=== PATIENT | male | born 1945 | race Hispanic/Latino ===

== ENCOUNTER 2018-04-29 21:48 | Inpatient (IN) | payer MEDICARE ==
--- NOTE | 2018-04-29 23:51 | ULT ---
ULTRASOUND SCROTUM TESTICLES DOPPLER DUPLEX: 04/29/18 HISTORY: 72-year-old male with scrotal pain and swelling. TECHNIQUE: Montesinos-scale evaluation of intrascrotal contents. Color flow Doppler and spectral waveform analysis of the testicles. FINDINGS: The entire right epididymis is severely enlarged, with mixed, heterogeneous echogenicity, and very hy peremic (increased blood flow). There is a small right hydrocele. The right testicle is smaller than the left, measuring 2.3 x 1.6 x 1.9 cm. There is at least one tiny calcification in the right testicu lar parenchyma. Left testicle is 3.6 x 1.6 x 2.4 cm. It also contains at least one tiny calcification. The left epididymal head is within normal limits in size. Symmetrical blood flow is demonstrated in both testicles by doppler. IMPRESSION: Evidence for severe right epididymitis. MULU [place] POS: J[facility]
[2018-04-30 00:47] LABS: Bilirubin Small (Negative); Blood, Urine Moderate (Negative); Clarity CLOUDY (Clear); Glucose, Urine (Dipstick) >=1000 mg/dL (Negative); Leukocyte Large (Negative); Nitrite Positive (Negative); Protein, Urine (Dipstick) Trace mg/dL (Neg-Trace); Specific Gravity, Urine 1.023 (1.002-1.036)
[2018-04-30 00:49] LABS: Bacteria/HPF None Seen HPF (None Seen); Hyaline Casts/LPF 0-3 HYALINE CAST LPF (0-3 Hyaline); Pathc Cast-AUWi Flag 0.43 (0-2.49); RBC/HPF 21-50 HPF (0-3); Squamous Epithelial None Seen HPF (0-3)
[2018-04-30 00:54] LABS: Yeast-All Forms None Seen HPF (None Seen)
[2018-04-30] MEDS ORDERED: Tamsulosin HCl 0.4 MG CAP PO SCH (01:30)
[2018-04-30] MEDS ORDERED: diphenhydrAMINE 50 MG/ML VIAL ONE (02:08)
[2018-04-30] MEDS ORDERED: Sodium Chloride 0.9% 1,000 ML IV SCH (03:45)
[2018-04-30] MEDS ORDERED: Acetaminophen 325 MG TAB PO PRN (08:35)
[2018-04-30] MEDS ORDERED: Mag-Al 1200 mg/1200 mg/30 ML UDCUP PO PRN (08:35)
[2018-04-30] MEDS ORDERED: Milk Of Magnesia 30 ML UDCUP PO PRN (08:35)
[2018-04-30] MEDS ORDERED: Ondansetron ODT 4 MG TAB PO PRN (08:35)
[2018-04-30] MEDS ORDERED: HYDROcodone/Acetaminophen 5/325 mg Tablet PO PRN (08:35)
[2018-04-30] MEDS ORDERED: hydrALAZINE 20 MG/ML VIAL SLOW IVP PRN (08:35)
[2018-04-30] MEDS ORDERED: Dextrose 50% Abboject 50 ML SYRINGE SLOW IVP PRN (08:35)
[2018-04-30] MEDS ORDERED: Dextrose 5% in Water 1,000 ML IV PRN (08:35)
[2018-04-30] MEDS ORDERED: HumaLOG 300 UNITS/3 ML VIAL SC PRN (08:35)
[2018-04-30] MEDS ORDERED: cefTRIAXone\\ROCEPHIN 1 GM in Sodium Chloride 0.9% 100 ML IVPB SCH (09:00)
[2018-04-30] MEDS ORDERED: Prevnar 13-Val Conj/PF 0.5 ML SYRINGE IM ONE (09:00)
--- NOTE | 2018-04-30 09:23 | HP ---
PRIMARY CARE PHYSICIAN: Dr. العلي. CHIEF COMPLAINT: Bleeding when I urinate. HISTORY OF PRESENT ILLNESS: Mr. Torres is a pleasant 72-year-old gentleman who has a history of hyp ertension, diabetes mellitus as well as prostate cancer. He says he was hospitalized in [facility] 2 weeks ago for what sounds like a urinary tract infection. At that time, he says he was having so me blood in his urine and was treated with antibiotics and then released. He says that he was doing fine until the day of admission when he got up to go the bathroom and says that he did not really not ice anything, but then when he looked in the toilet after he urinated, it was basically just blood. This concerned him and he called his daughter who then told him to come to the hospital in [place] where she lives. He says by the time the ambulance came, the urine was starting to clear up and was more of an orangish color. He denies having any dysuria or any flank pain. He says he did have some pressure down in the lower abdomen area, but no other symptoms. He denies any fevers or chills, tali sea or vomiting. He also had noticed feeling a knot in his scrotal area, but he says it was not pain ful, but figured this needed to be checked out as well. In the emergency room in [place], they did an ultrasound of the testicle and noticed some evidence for epididymitis and he was transferred to [facility] facility for further evaluation. The patient also has coronary artery disease and diabetes, and h e states these are generally well controlled. He denies any chest pain or shortness of breath, no PN D, no orthopnea and he does not elicit very many prostate symptoms either such as difficulty with his stream, etc. REVIEW OF SYSTEMS: All systems were reviewed and are negative except for that mentioned in the histo ry of present illness. PAST MEDICAL HISTORY: Significant for coronary artery disease, congestive heart failure, diabetes me llitus type 2, hyperlipidemia, hypertension, prostate cancer, migraine headaches, and peripheral vasc ular disease. PAST SURGICAL HISTORY: He has had a cervical fusion, laminectomy, coronary stents, coronary artery b ypass grafting and lumbar laminectomy. ALLERGIES: He is unsure of any allergies. SOCIAL HISTORY: He is a former smoker and he used to drink, but he says he quit both 8 years ago whe n his doctor told him to. He is and then after that he was remarried and . He has 8 children. His code status is full code. His daughter, Orquidea Torres is his surrogate decision layne de. FAMILY HISTORY: Significant for heart disease in his father. Mother had cerebrovascular disease as well as a brother. CURRENT MEDICATIONS: Unknown. These need to be obtained and reconciled. PHYSICAL EXAMINATION: GENERAL: He is alert and oriented. He appears to be in no acute distress. He is well-developed and well-nourished. VITAL SIGNS: Blood pressure was 154/61, heart rate 81, respiratory rate of 18, temperature is 98.3. HEENT: His pupils are equal, round, and reactive. Extraocular muscles are intact. His sclerae are anicteric. Throat: There is no erythema, no exudates. He is basically edentulous. NECK: There is no adenopathy, no bruits. LUNGS: Clear to auscultation. There is no wheezing, no rales. CARDIOVASCULAR: He had a normal S1, S2. I did not appreciate an S3 or S4. No murmurs, clicks, no r ubs. ABDOMEN: Obese, it is soft. He did have some mild lower quadrant tenderness. There is no rebound, no guarding, no organomegaly. EXTREMITIES: There is no clubbing, cyanosis. There is no muscle or calf tenderness. There are no j oint effusions or crepitus in the lower extremities. NEUROLOGIC: Cranial nerves II through XII are intact and muscle strength was intact in both the uppe r and lower extremities. SKIN AND INTEGUMENT: There were no skin changes. No rash. He had good capillary refill and pulses were palpable. LABORATORY RESULTS: Urinalysis showed positive nitrites, large leukocyte esterase and too numerous t o count WBCs. His sodium was 134, potassium 4.4, chloride is 100, CO2 is 24, BUN was 21.6, creatinin e 1.2, glucose is 292. Bilirubin is 1.2, alkaline phosphatase is elevated at 235. White blood cell count 11.11, hemoglobin 12.5, hematocrit is 36.9, platelet count is 348. ASSESSMENT AND PLAN: This is a pleasant 72-year-old gentleman who presented to the [place] emergen cy room, he states for hematuria and a knot feeling in his testicle. He was found to have epididymit is. He will be admitted for IV antibiotics. Urologist has already been consulted and has seen the p atient and we will continue with recommendations. 1. Diabetes mellitus. We will need to obtain the names and doses of his medications and reconcile. Also, he will be placed on a sliding scale insulin. 2. Hypertension. This appears to be controlled once again. Restart him on his usual medications as well as p.r.n. medications. 3. Coronary artery disease also appears to be stable. We will continue his home medications and he will also be placed on deep venous thrombosis and gastrointestinal prophylaxis.
[2018-04-30] MEDS: MEROPENEM 1 GM/50 ML 1 GM in Premix Bag 1 BAG IVPB SCH ×2 (10:25→13:08)
[2018-04-30] MEDS: cloNIDine 0.1 MG TAB PO PRN (10:28)
[2018-04-30] MEDS: Docusate 100 MG CAP PO SCH ×2 (10:28→20:14)
[2018-04-30] MEDS: Enoxaparin Sodium 40 MG/0.4 ML SYRINGE SC SCH (10:29)
--- NOTE | 2018-04-30 11:21 | CON ---
DATE OF CONSULTATION: 04/30/2018 HISTORY OF PRESENT ILLNESS: The patient is a 72-year-old male, who was admitted overnight via the ER for right epididymitis without adequate pain control. I was called approximately 12:30 at night with the clinical scenario with an ultrasound that showed only concern for epididymitis and no concerns for abscess nor clinical concerns for sepsis and was just asked to see him in the morning. The patient is actually a patient of Dr. Pozo, although he cannot remember the name and I was only able to find that out through looking at [facility] records, and prior to that, he was a patient of another urologist, who actually treated his prostate cancer about 7 years ago with radiation therapy. He is not exactly sure, but he does think he had a PSA in the last 2 years at [facility] that was okay, although then he relates getting a shot, which I presume is Lupron, and I do not have the full details of his prostate cancer history. More recently, he was treated at the [facility] for urinary tract infection and took antibiotics and was otherwise doing a little bit better until he had significant right testicular pain and swelling and presented to the [place] ER, because he did not want to go back to [place]. He was ultimately, transferred to [place], as best I can tell, because of concerns for inadequate pain control with progression of the recent infection despite recent antibiotics. He has not had any fever, chills, nausea, or vomiting. This was his first urinary tract infection. He did note some blood in the urine at the time of the infection, but that was last week and not recently. He denies any concerns about emptying his bladder, and normally has frequency q.2-3 hours and nocturia x4. He does not have any hesitancy. The stream is okay and he does feel as though he empties. I ensured he was emptying by asking the ER to check a PVR--that was minimal per report. For this reason, I do not think a arredondo will be helpful--in fact given his Plavix and ASA, would probably cause more harm than help. PAST MEDICAL HISTORY: Significant for hyponatremia, coronary artery disease, CHF, diabetes since about 2012, hypertension, high cholesterol, migraines, peripheral vascular disease, and the above-mentioned prostate cancer. PAST SURGICAL HISTORY: Includes a CABG in 2013; carotid endarterectomy on at least one side if not both sides, he has had a procedure on both, and 1 is now 100% blocked per the patient. He also had radiation therapy for his prostate cancer. MEDICATIONS: Include Plavix, baby aspirin, and then others he cannot remember. ALLERGIES: None, although last night they gave him something that he reports getting a rash on his arm from. He is not aware what that is. REVIEW OF SYSTEMS: Reveals he is not aware whether he has had a colonoscopy. He has no chest pain, no shortness of breath, no cough. No numbness or tingling. Two to three weeks ago, he had constipation, but otherwise his bowels have been improved and he had a normal bowel movement yesterday. SOCIAL HISTORY: He has a 18-iflq-inup history, but quitting around 2012. He used to drink alcohol, but denies any concern for significant abuse and has not had any since 2012. No other drugs. He lives in an assisted living facility by himself. FAMILY HISTORY: His mom in her late 70s of stroke. Dad at 77 of heart disease, neither of them had cancer. PHYSICAL EXAMINATION: GENERAL: He appears comfortable in the bed and in no distress. HEENT: He has no scleral icterus. No diaphoresis. It is difficult to assess JVD given his body habitus. HEART: Regular rate and rhythm. No murmurs, gallops, or rubs. LUNGS: Clear to auscultation bilaterally. ABDOMEN: Soft, nondistended, nontender with normoactive bowel sounds. Small umbilical hernia noted. EXTREMITIES: He had no lower extremity edema. GENITAL EXAM: He had an uncircumcised phallus that was easily retracted and examined without any meatal stenosis, and then reduced again. His left testicle was normal. His right testicle was smaller than the left, but with severe induration and more so at the epididymis and tender, but not significantly painful to exam. There was no scrotal changes or edema. There was no crepitus or erythema. LABORATORY DATA: I do not have any labs, as they are in the [place] and I do not have access to this, but labs from 04/19/2018 through the [facility] system show an anemia of 11.5 and 34.0, BUN and creatinine of 12 and 0.80. A urinalysis from this hospital entry shows too numerous to count wbc's, 21-50 rbc 's, no bacteria, no squamous cells with greater than 1000, glucose and trace protein. A urinalysis from 04/18/2018 showed greater than 50 wbc's, 20-50 rbc's , few bacteria, rare squamous cells with a culture that grew E. coli that was sensitive only to nitrofurantoin and Bactrim on an oral standpoint with multiple other drug resistance since even an IV including ceftriaxone. His blood cultures were negative from that time. A PSA from 04/20/2017 was less than 0.1. Scrotal ultrasound from 04/29/2018 reviewed personally revealed severe right epididymitis with a smaller right testicle than the left and unremarkable calcifications in both. A CT scan from 04/18/2018 was reviewed personally and this was in the [facility] system that revealed renal vascular calyx only. No collecting system calcifications. Normal kidneys without any hydronephrosis. Normal bladder with mild kenny-vesicle stranding noted and normal prostate. ASSESSMENT AND PLAN: In assessment, we have a 72-year-old male with a recent urinary tract infection that progressed to right epididymitis secondary to a multidrug-resistant organism, so I have switched him from ceftriaxone to meropenem. I would await the culture from [place] before sending him out on antibiotics to ensure that this is not a different organism from the more recent infection. If it is the same organism--and he can tolerate Bactrim-- then he can go out on this for at least 2 weeks. If it is different, then he may or may not need a PICC line and IV antibiotics depending on those results. We reviewed scrotal elevation support, avoiding any straining including for constipation, and ambulating to prevent blood clots, but otherwise no significant exercise until things greatly improve from his pain standpoint. At this time, his exam is not concerning for anything other than local epididymitis. I will inform Dr. Pozo of his admission, and they can continue to follow up with him as an outpatient. I'll inform the urology coverage for this weekend as well. TITO
[2018-04-30] MEDS: HumaLOG 300 UNITS/3 ML VIAL SC PRN (13:18)
[2018-04-30] MEDS ORDERED: Meropenem 1 GM in Sodium Chloride 0.9% 100 ML IVPB SCH (14:00)
[2018-05-01] MEDS ORDERED: diphenhydrAMINE 25 MG CAP PO SCH (04:30)
[2018-05-01 05:08] LABS: #Eosinphils 0.2 thou/uL (0.0-0.7); #Lymphocytes 2.6 thou/uL (1.20-3.40); #Monocytes 0.7 thou/uL (0.11-0.59); #Neutrophils 9.4 thou/uL (1.40-6.50); %Basophils 0.4 % (0.0-1.0); %Eosinophils 1.5 % (0.0-10.0); %Monocytes 5.6 % (0.0-10.0); %Neutrophils 72.5 % (42.0-75.0); Hemoglobin 13.1 g/dL (14.0-18.0); Mean Corpuscular HGB CONC 32.6 g/dL (32.0-36.0); Mean Corpuscular Hemoglobin 28.4 pg (27.0-31.0); Mean Corpuscular Volume 86.9 fL (78.0-98.0); Mean Platelet Volume 6.9 fL (7.4-10.4); Platelet Count 396 thou/uL (130-400); RBC Distribution Width 12.6 % (11.5-14.5); Red Blood Cell (RBC) Count 4.64 mill/uL (4.70-6.10); White Blood Cell (WBC) Count 12.9 thou/uL (4.8-10.8)
[2018-05-01 05:29] LABS: Anion Gap 15 mmol/L (10-20); BUN (Urea Nitrogen) 15 mg/dL (8.4-25.7); Calc. Creatinine Clearance 0 mL/min (70-130); Calcium 8.9 mg/dL (7.8-10.44); Carbon Dioxide 22 mmol/L (23-31); Chloride 101 mmol/L (98-107); Estimated GFR-MDRD 73; Glucose 233 mg/dL (83-110); Potassium 4.1 mmol/L (3.5-5.1); Sodium 134 mmol/L (136-145)
[2018-05-01] MEDS: MEROPENEM 1 GM/50 ML 1 GM in Premix Bag 1 BAG IVPB SCH ×3 (05:45→21:04)
[2018-05-01] MEDS: cloNIDine 0.1 MG TAB PO PRN (05:53)
[2018-05-01] MEDS: HumaLOG 300 UNITS/3 ML VIAL SC PRN ×3 (06:14→16:45)
[2018-05-01] MEDS ORDERED: Nitroglycerin 0.4 MG TAB (25 Tab Bottle) SL PRN (08:07)
[2018-05-01] MEDS ORDERED: cloNIDine 0.1 MG TAB PO PRN (08:07)
--- NOTE | 2018-05-01 08:17 | PDOC.PN ---
- Subjective Encounter Start Date: 05/01/18 Encounter Start Time: 08:15 Mr. Torres was seen today in follow-up of right epidydimitis. He does not have any complaints this morning. He denies scrotal pain. He denies chest pain or shortness of breath. His only complaint was some itching last night. - Objective Resuscitation Status: Resuscitation Status FULL:Full Resuscitation MAR Reviewed: Yes Vital Signs & Weight: Vital Signs (12 hours) Temp Pulse Resp BP BP Pulse Ox 05/01/18 05:53 183/77 H 05/01/18 04:00 99.8 F H 92 20 183/77 H 92 L Weight Weight 7.02 oz I&O: 04/30/18 05/01/18 05/02/18 06:59 06:59 06:59 Intake Total 625 Output Total 300 Balance 325 Result Diagrams: 05/01/18 04:55 05/01/18 04:55 Additional Labs: Accuchecks 05/01/18 04/30/18 04/30/18 06:10 20:13 16:29 POC Glucose 213 H 248 H 195 H 04/30/18 11:05 POC Glucose 254 H Phys Exam - Physical Examination HEENT: PERRLA Respiratory: no wheezing, no rales, no rhonchi, clear to auscultation bilateral Cardiovascular: RRR, no significant murmur, no rub no gallop Gastrointestinal: soft, non-tender, no distention, positive bowel sounds Musculoskeletal: no edema, pulses present Dx/Plan (1) Epididymitis, right Code(s): N45.1 - EPIDIDYMITIS Status: Acute (2) Diabetes mellitus type 2 in obese Code(s): E11.69 - TYPE 2 DIABETES MELLITUS WITH OTHER SPECIFIED COMPLICATION; E66.9 - OBESITY, UNSPECIFIED Status: Chronic (3) Hypertension Code(s): I10 - ESSENTIAL (PRIMARY) HYPERTENSION Status: Chronic (4) Coronary artery disease Code(s): I25.10 - ATHSCL HEART DISEASE OF [place] CORONARY ARTERY W/O ANG PCTRS Status: Chronic - Plan * Urology evaluation noted- will continue Meropenem ( given recent history of MDR UTI) and await the current cultures * DM- His home medications have been recorded- will re-start, and continue SSI * HTN- blood pressure is stable- will re-start his home medications * CAD- also stable- re-start home medications .
[2018-05-01] MEDS ORDERED: Non-Formulary Item 1 EACH (Linagliptin [Tradjenta] 5 MG) PO SCH (09:00)
[2018-05-01] MEDS ORDERED: Non-Formulary Item 1 EACH (Levemir Flexpen [Levemir Flexpen] 35 UNIT) SC SCH (09:00)
[2018-05-01] MEDS: Alogliptin 25 MG TAB PO SCH (10:09)
[2018-05-01] MEDS: Atorvastatin Calcium 10 MG TAB PO SCH (10:12)
[2018-05-01] MEDS: Docusate 100 MG CAP PO SCH ×2 (10:12→21:01)
[2018-05-01] MEDS: Enoxaparin Sodium 40 MG/0.4 ML SYRINGE SC SCH (10:13)
[2018-05-01] MEDS: Insulin Glargine 35 UNITS in Pre-Filled Syringe 1 EACH SC SCH (10:17)
[2018-05-01] MEDS ORDERED: Clopidogrel Bisulfate 75 MG TAB PO SCH (21:00)
[2018-05-01] MEDS ORDERED: Insulin Glargine 35 UNITS in Pre-Filled Syringe 1 EACH SC SCH (21:00)
[2018-05-01] MEDS ORDERED: Tamsulosin HCl 0.4 MG CAP PO SCH (21:00)
[2018-05-01] MEDS ORDERED: Amitriptyline HCl 10 MG TAB PO SCH (21:00)
[2018-05-01] MEDS ORDERED: Oxybutynin 5 MG TAB PO SCH (21:00)
[2018-05-01] MEDS ORDERED: traZODone HCl 50 MG TAB PO SCH (21:00)
[2018-05-01] MEDS ORDERED: Amlodipine 10 MG TAB PO SCH (21:00)
[2018-05-02 05:43] LABS: #Eosinphils 0.2 thou/uL (0.0-0.7); #Monocytes 0.7 thou/uL (0.11-0.59); #Neutrophils 6.5 thou/uL (1.40-6.50); %Basophils 0.3 % (0.0-1.0); %Eosinophils 1.9 % (0.0-10.0); %Lymphocytes 21.6 % (21.0-51.0); %Monocytes 7.6 % (0.0-10.0); %Neutrophils 68.5 % (42.0-75.0); Hemoglobin 11.2 g/dL (14.0-18.0); Mean Corpuscular HGB CONC 32.8 g/dL (32.0-36.0); Mean Corpuscular Hemoglobin 28.7 pg (27.0-31.0); Mean Corpuscular Volume 87.6 fL (78.0-98.0); Mean Platelet Volume 7.2 fL (7.4-10.4); Platelet Count 336 thou/uL (130-400); RBC Distribution Width 12.4 % (11.5-14.5); Red Blood Cell (RBC) Count 3.91 mill/uL (4.70-6.10); White Blood Cell (WBC) Count 9.4 thou/uL (4.8-10.8)
[2018-05-02] MEDS: HumaLOG 300 UNITS/3 ML VIAL SC PRN ×2 (05:49→11:48)
[2018-05-02] MEDS: MEROPENEM 1 GM/50 ML 1 GM in Premix Bag 1 BAG IVPB SCH ×2 (05:49→13:46)
[2018-05-02 06:09] LABS: Anion Gap 9 mmol/L (10-20); BUN (Urea Nitrogen) 15 mg/dL (8.4-25.7); Calc. Creatinine Clearance 0 mL/min (70-130); Calcium 8.3 mg/dL (7.8-10.44); Carbon Dioxide 26 mmol/L (23-31); Chloride 101 mmol/L (98-107); Estimated GFR-MDRD 90; Glucose 166 mg/dL (83-110); Potassium 4.3 mmol/L (3.5-5.1); Sodium 132 mmol/L (136-145)
[2018-05-02] MEDS: Insulin Glargine 35 UNITS in Pre-Filled Syringe 1 EACH SC SCH (08:42)
[2018-05-02] MEDS: Enoxaparin Sodium 40 MG/0.4 ML SYRINGE SC SCH (08:46)
[2018-05-02] MEDS: Alogliptin 25 MG TAB PO SCH (08:46)
[2018-05-02] MEDS: Docusate 100 MG CAP PO SCH (08:47)
[2018-05-02] MEDS: Atorvastatin Calcium 10 MG TAB PO SCH (08:47)
--- NOTE | 2018-05-02 10:15 | PDOC.PN ---
- Subjective Encounter Start Date: 05/02/18 Encounter Start Time: 10:14 CC: scrotal pain Sub: pt denies dyspnea - Objective Resuscitation Status: Resuscitation Status FULL:Full Resuscitation Vital Signs & Weight: Vital Signs (12 hours) Temp Pulse Resp BP Pulse Ox 05/02/18 04:53 98.1 F 74 18 114/55 L 93 L 05/02/18 00:27 98 F 77 18 116/63 92 L Weight Weight 7.02 oz I&O: 05/01/18 05/02/18 05/03/18 06:59 06:59 06:59 Intake Total 1820 Output Total 800 Balance 1020 Result Diagrams: 05/02/18 05:13 05/02/18 05:13 Additional Labs: Accuchecks 05/02/18 05/01/18 05/01/18 04:51 20:53 16:33 POC Glucose 164 H 178 H 228 H 05/01/18 10:48 POC Glucose 303 H Phys Exam - Physical Examination Constitutional: NAD HEENT: moist MMs Neck: no nodes Respiratory: no wheezing, no rales, no rhonchi Cardiovascular: RRR, no significant murmur Gastrointestinal: soft positive scrotal pain Musculoskeletal: no edema Neurological: non-focal, moves all 4 limbs Psychiatric: normal affect, A&O x 3 Dx/Plan - Plan * . (1) Epididymitis, right Code(s): N45.1 - EPIDIDYMITIS Status: Acute (2) Diabetes mellitus type 2 in obese Code(s): E11.69 - TYPE 2 DIABETES MELLITUS WITH OTHER SPECIFIED COMPLICATION; E66.9 - OBESITY, UNSPECIFIED Status: Chronic (3) Hypertension Code(s): I10 - ESSENTIAL (PRIMARY) HYPERTENSION Status: Chronic (4) Coronary artery disease Code(s): I25.10 - ATHSCL HEART DISEASE OF [place] CORONARY ARTERY W/O ANG PCTRS Status: Chronic - Plan * Urology evaluation noted- continue Meropenem * DM-continue SSI * HTN- blood pressure is stable. continue norvasc * CAD- stable at present case d/w pt & RN
--- NOTE | 2018-05-02 13:22 | CON ---
DATE OF CONSULTATION: 05/02/2018 REASON FOR CONSULTATION: 1. Right epididymitis. 2. 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 HISTORY OF PRESENT ILLNESS: Mr. Nash Torres is a very pleasant 72-year-old [place] speaking Hispan ic male with a history of prostate cancer. The patient is a routine patient of Dr. Rinku Pozo of the [facility] [place] [facility] in [place]. The patient was admitted on 04/30/2018 due to r ight epididymitis and was seen here by Dr. Cristine Jarvis. The patient had right-sided epididymitis. Cultures were obtained here and also previously been obtained in the [facility]. Both cu ltures grew out the same organism which is a multidrug resistant Escherichia coli with sensitivity to Bactrim and nitrofurantoin and a large number of IV medications that is resistant to Levaquin. The patient is also allergic to LEVAQUIN. It is ariza insensitive to penicillin and derivatives including all cephalosporins tested. The patient today is doing well, feels like his pain has been significantly relieved on IV antibiotic s here in the hospital. He is desiring a discharge home. PHYSICAL EXAMINATION: VITAL SIGNS: Patient is afebrile with current temperature of 98.1, pulse 74, respirations are 18, O2 saturations 93% on room air, blood pressure is 114/55. GENERAL: This is a pleasant, heavy set [place] African speaking male in no apparent distress. HEAD, EYES, EARS, NOSE, AND THROAT: Extraocular movements are intact. Sclerae are anicteric. Oroph arynx is clear. NECK: Supple. LUNGS: Clear to auscultation bilaterally. CARDIAC: Regular rate and rhythm without murmur, rub or gallop. ABDOMEN: Soft and nontender. The patient has an umbilical hernia which is minimal. GENITOURINARY: The phallus is without lesion. Urethral meatus appears adequate. There is no eviden ce of urinary leakage. Testes is present bilaterally, but atrophic. There is right epididymitis wit h swelling and tenderness of the right testis, which apparently is much reduced by the patient's repo rt. DIGITAL RECTAL: Examination is not repeated. IMAGING DATA: Review of the patient's [facility] record shows his most recent PSA was undetecta ble. Current laboratory studies here and at [facility] both revealed the presence of E. coli wi th an MDR characteristic with resistance to penicillins and cephalosporins, still sensitive however, to Bactrim as well as nitrofurantoin and presumptively sensitive to presumptively sensitive to fosfom ycin as well. ASSESSMENT AND PLAN: 1. Right epididymitis much improved after antibiotic therapy with sensitivity to Bactrim. The patie nt will be discharged home on certainly 2 week course of Bactrim. 2. History of prostate cancer. Patient should follow up with Dr. Rinku Pozo for further evaluat ion, followup and PSA testing. Antibiotics will be called to [facility] for him. Over 35 minutes of consultation, assessment, coordination of care and time was spent in evaluation an d treatment of this patient today.
--- NOTE | 2018-05-02 13:36 | PDOC.EVN ---
Event Note - Event Note Event Note: [id number] DC SUMMARY DISCTATED uROLOGIST CALLED IN PRESCRIPTION TO PHARMACY. ADVICE DPATIENT TO CHECK WITH PHARMACY.
[2018-05-02 16:51] VITALS: BP 149/64; TEMP 97.7
--- NOTE | 2018-05-03 08:45 | DIS ---
DATE OF ADMISSION: 04/30/2018 DATE OF DISCHARGE: 05/02/2018 DISCHARGE DIAGNOSES: 1. Right epididymitis. 2. Diabetes type 2. 3. Hypertension. 4. Coronary artery disease. DISCHARGE CONDITION: Stable. DISPOSITION: Home. DISCHARGE MEDICATIONS: See med rec. CONSULTANTS DURING THE HOSPITAL STAY: Urology. PROCEDURE DURING THE HOSPITAL STAY: Testicular ultrasound. DISCHARGE INSTRUCTIONS: 1. Follow up with Urology as scheduled. 2. No report to the ER if developed fever and chills. HOSPITAL COURSE: The patient is a 72-year-old male admitted secondary to right testicular epididymit is, pain. 1. Right testicular epididymitis. The patient was treated with IV antibiotics. Patient's cultures grew E. coli, which was resistant to multidrug resistant. Urology saw the patient. The patient's ur ine cultures were sensitive to Bactrim, so Urology recommend discharge the patient on Bactrim for 2 m ore weeks. Prescription was sent to the pharmacy at that time prior to discharge, the patient is sta ble at the time of discharge. 2. Pain was controlled with pain medication. 3. History of coronary disease. Patient was advised to continue Plavix 75 mg daily. 4. Hypertension. Blood pressure monitored and remains stable. 5. History of Staph hyperlipidemia. Continue statin. On the day of discharge, please see progress note for physical exam. DISCHARGE INSTRUCTIONS: 1. Follow up with the Urology in 1 week. 2. Finish antibiotic course. 3. Report fever and chills. Discharge time 40 minutes. Discussed with patient and Urology.
== END 2018-05-02 15:05 | disposition home or self-care (01) | DRG 728 ==
LOC: ERS 21:48 → T4-B 04-30 00:22
PROVIDERS: ADMIT Hospitalist; ATTEND Hospitalist
DX: N45.1 Epididymitis (principal); R31.9 Hematuria, unspecified; I25.10 Atherosclerotic heart disease of native coronary artery without angina pectoris; I11.0 Hypertensive heart disease with heart failure; I50.9 Heart failure, unspecified; E78.5 Hyperlipidemia, unspecified; G43.909 Migraine, unspecified, not intractable, without status migrainosus; E11.51 Type 2 diabetes mellitus with diabetic peripheral angiopathy without gangrene; E66.9 Obesity, unspecified; Z95.1 Presence of aortocoronary bypass graft; Z95.5 Presence of coronary angioplasty implant and graft; Z87.891 Personal history of nicotine dependence; Z92.3 Personal history of irradiation; Z85.46 Personal history of malignant neoplasm of prostate
CPT/HCPCS: 36415; 36416; 76870; 80048; 81003; 81015; 85025; 87077; 87086; 90471; 90670; 93976; 96365; 96375; G0009; J1200; J1650; J1956; J2185; J7050

== ENCOUNTER 2018-08-19 08:47 | Observation (INO) | payer MEDICARE ==
--- NOTE | 2018-08-19 09:23 | CT ---
HEAD CT WITHOUT CONTRAST: Date: 08/19/18 HISTORY: Slurred speech. Bilateral leg weakness. Patient was normal last night. COMPARISON: None. FINDINGS: No parenchymal hemorrhage. No extra-axial hematoma. No midline shift. Basilar cisterns are patent. Br ain volume, age-appropriate. Cortical krishnamurthy-white matter differentiation preserved. Ventricles and sul ci are patent and symmetric. Adequate aeration of the sinuses and mastoid air cells. Calvarium is int act. There is cavernous carotid atherosclerosis. IMPRESSION: No acute intracranial process. Results of study discussed with Dr. Aldrich on 08/19/18 at 0912 hours. CODE CR. POS: [facility]
[2018-08-19 09:45] LABS: #Eosinphils 0.1 thou/uL (0.0-0.7); #Lymphocytes 1.5 thou/uL (1.20-3.40); #Monocytes 0.5 thou/uL (0.11-0.59); #Neutrophils 8.1 thou/uL (1.40-6.50); %Eosinophils 0.8 % (0.0-10.0); %Lymphocytes 14.7 % (21.0-51.0); %Neutrophils 79.5 % (42.0-75.0); Hemoglobin 12.6 g/dL (14.0-18.0); Mean Corpuscular HGB CONC 34.2 g/dL (32.0-36.0); Mean Corpuscular Hemoglobin 30.4 pg (27.0-31.0); Mean Corpuscular Volume 88.8 fL (78.0-98.0); Mean Platelet Volume 7.5 fL (7.4-10.4); Platelet Count 227 thou/uL (130-400); Red Blood Cell (RBC) Count 4.15 mill/uL (4.70-6.10); White Blood Cell (WBC) Count 10.2 thou/uL (4.8-10.8)
[2018-08-19 09:53] LABS: Prothrombin Time 13.7 SEC (12.0-14.7)
[2018-08-19 09:54] LABS: PTT 30.9 SEC (22.9-36.1)
--- NOTE | 2018-08-19 09:55 | RAD ---
AP CHEST: History: Slurred speech, elevated glucose. Chest pain. Date: 08-19-18 Comparison: None available. FINDINGS: Cardiomegaly is seen. Sternotomy wires seen. Patient has had previous lower cervical fusion. No evidence of effusion, pneumonia, or pneumothorax seen. IMPRESSION: Cardiomegaly and pulmonary vascular congestion. POS: [facility]
[2018-08-19 10:08] LABS: ALT (SGPT) 12 U/L (8-55); AST (SGOT) 11 U/L (5-34); Albumin 3.8 g/dL (3.4-4.8); Alkaline Phosphatase 116 U/L (40-150); Anion Gap 14 mmol/L (10-20); BUN (Urea Nitrogen) 17 mg/dL (8.4-25.7); Bilirubin, Total 0.6 mg/dL (0.2-1.2); Calc. Creatinine Clearance 0 mL/min (70-130); Calcium 7.9 mg/dL (7.8-10.44); Carbon Dioxide 22 mmol/L (23-31); Chloride 100 mmol/L (98-107); Estimated GFR-MDRD 61; Globulin 3.6 g/dL (2.4-3.5); Glucose 330 mg/dL (83-110); Potassium 4.7 mmol/L (3.5-5.1); Protein, Total 7.4 g/dL (5.8-8.1); Sodium 131 mmol/L (136-145)
[2018-08-19] MEDS ORDERED: Senokot S 8.6-50 MG TAB PO PRN (11:13)
[2018-08-19] MEDS ORDERED: Acetaminophen 325 MG TAB PO PRN (11:13)
[2018-08-19] MEDS ORDERED: hydrALAZINE 20 MG/ML VIAL SLOW IVP PRN ×2 (11:13→18:58)
[2018-08-19] MEDS ORDERED: Dextrose 5% in Water 1,000 ML IV PRN (11:13)
[2018-08-19] MEDS ORDERED: Dextrose 50% Abboject 50 ML SYRINGE SLOW IVP PRN (11:13)
--- NOTE | 2018-08-19 13:37 | HP ---
PRIMARY CARE PROVIDER: Jeanine Cheng DO CHIEF COMPLAINT: Slurred speech. HISTORY OF PRESENT ILLNESS: Mr. Torres is a pleasant 73-year-old gentleman, who was seen at [facility] on 08/19/2018. The patient is able to provide good history. Collateral history was obtained from family members by the bedside, discussion with emergency room physician and review of medical records. Mr. Torres was last noted to be at his baseline last night. Today morning, he had slurred speech. He also has right lower extremity weakness, but family reports that is old. The patient denies any chest pain or shortness of breath. He denies any fevers or chills. He denies any nausea or vomiting. REVIEW OF SYSTEMS: All other systems reviewed and found to be negative. PAST MEDICAL HISTORY: Coronary artery disease, congestive heart failure, diabetes mellitus type 2, dyslipidemia, hypertension, prostate cancer, migraines and peripheral vascular disease. PAST SURGICAL HISTORY: Cervical fusion, laminectomy, coronary stents, coronary artery bypass graft, lumbar laminectomy. FAMILY HISTORY: Heart disease in his father and stroke in his mother and brother. SOCIAL HISTORY: The patient denies current tobacco use, alcohol use, or recreational drug use. He lives at home. He uses a walker and a motorized wheelchair to ambulate. CODE STATUS: I discussed his code status. He is full code. ALLERGIES: LEVOFLOXACIN. CURRENT MEDICATIONS: These need to be clarified, but appeared to include: 1. Tylenol No.3. 2. Amitriptyline. 3. Amlodipine. 4. Atorvastatin. 5. Clonidine. 6. Plavix. 7. Nexium. 8. Humalog insulin. 9. Isosorbide mononitrate. 10. Levemir insulin. 11. Linagliptin. 12. Toprol-XL. 13. Nitroglycerin p.r.n. 14. Oxybutynin. 15. Ranexa. 16. Flomax. 17. Trazodone. PHYSICAL EXAMINATION: GENERAL: On examination, Mr. Torres is awake and alert, not in acute distress. VITAL SIGNS: Blood pressure is 144/61, pulse 58, respiratory rate 19 and oxygen saturation 97% on room air. He is afebrile. EYES: No scleral icterus. No conjunctival pallor. ENT: Moist mucosal membranes. No oropharyngeal erythema or exudates. NECK: Supple, nontender, trachea is midline. RESPIRATORY: Accessory muscles of breathing are not active. Chest wall movements are symmetric bilaterally. Lungs are clear to auscultation without wheeze, rhonchi, or crepitations. CARDIOVASCULAR: S1 and S2 are heard, regular. Peripheral pulses palpable. No carotid bruit. No pericardial rub. ABDOMEN: Soft, distended, and nontender. Bowel sounds are heard. No hepatomegaly. No splenomegaly. NEUROLOGIC: The patient has slurred speech. Otherwise, cranial nerves 2 through 12 are intact. Power is 4/5 in the right lower extremity, 5/5 in the other three extremities. No other focal motor or sensory deficits. Deep tendon reflexes 2+, plantars downgoing bilaterally. MUSCULOSKELETAL: Power in the 4 extremities as described above. SKIN: No rashes or subcutaneous nodules. LYMPHATIC: No cervical lymphadenopathy. PSYCHIATRIC: Normal mood, normal affect, the patient is oriented to person and place, not to time. LABORATORY DATA: Mr. Torres's labs and investigations were reviewed. I reviewed his electrocardiogram, which shows sinus bradycardia, no ST changes to suggest an acute coronary syndrome. I also reviewed his chest x-ray, which does not show any pulmonary infiltrates. Noncontrast CT scan of the brain did not show any acute intracranial abnormality. He has normal white count, normocytic anemia with hemoglobin 12.6, normal platelet count. INR 1.0. Decreased sodium of 131, normal creatinine, normal potassium, elevated glucose of 330. Unremarkable liver profile and normal beta-hydroxybutyrate level. ASSESSMENT AND PLAN: Mr. Torres is a pleasant 73-year-old gentleman, who was seen at [facility] on 08/19/2018. His problem list includes: 1. Slurred speech: Main concern is regarding ischemic cerebrovascular accident. Mr. Torres will be admitted to the hospital for further workup including 2D echocardiogram, carotid Dopplers and MRI of the brain. Neurology Service will be consulted. It is unclear whether he is taking aspirin at home. He has received aspirin in the emergency room. We will continue him on aspirin and continue his home medication of Plavix as well. 2. Diabetes mellitus type 2: He has uncontrolled hyperglycemia. We will start him on Accu-Cheks and insulin sliding scale. 3. Dyslipidemia: Continue statin. 4. Hypertension: Resume home medications once clarified, monitor vital signs and titrate antihypertensives as needed. 5. Coronary artery disease: Appears to be stable. 6. Chronic congestive heart failure: Appears to be stable. Many thanks for allowing me to participate in your patient's care. Please feel free to contact me with any questions or concerns. LEVEL OF RISK: High. LEVEL OF COMPLEXITY: High. Job ID: [id number]
--- NOTE | 2018-08-19 15:02 | ULT ---
CAROTID ULTRASOUND WITH DOPPLER: Date: 08/19/18 HISTORY: Stroke workup. COMPARISON: None. TECHNIQUE: Montesinos scale, color flow, Doppler imaging, and spectral waveform analysis performed in the carotid and vertebral arteries. FINDINGS: Examination markedly limited due to location of the vessels deep within the patient's neck, which is short. Additionally, the patient moved and was snoring during the exam. Limited evaluation of both ve rtebral arteries, left internal carotid artery, and left external carotid artery. RIGHT CAROTID: No significant atherosclerotic disease. Peak systolic velocity in the common carotid artery is 63.8 c m/second. Peak systolic velocity in the internal carotid artery is 75 cm/second. Systolic ICA/CCA rat io is 1.4. LEFT CAROTID: Peak systolic velocity in the common carotid artery is 51 cm/second. The remainder of the left caroti d artery cannot be assessed. Neither vertebral artery was assessed. IMPRESSION: Suboptimal and limited evaluation. Additional imaging is clinically warranted. POS: [facility]
--- NOTE | 2018-08-19 15:51 | MRI ---
BRAIN MRI NONCONTRAST: Indication: Stroke with slurred speech and bilateral leg weakness. FINDINGS: There is no acute territory infarction, intracranial mass effect or midline shift. Ventricular system is age appropriate in size. No midline shift or parenchymal hemorrhagic susceptibility. Mild chronic ischemic disease of the cerebral white matter is present. Imaged skull base flow voids are grossly p atent. Remote lacunar infarction involves the posterior right lentiform nucleus. There is mild right mastoid fluid. IMPRESSION: 1. No acute territorial infarction, mass effect, or midline shift. 2. Mild chronic ischemic disease. POS: [facility]
[2018-08-20] MEDS: HumaLOG 300 UNITS/3 ML VIAL SC PRN ×4 (06:18→20:52)
[2018-08-20 06:40] LABS: #Eosinphils 0.1 thou/uL (0.0-0.7); #Lymphocytes 2.2 thou/uL (1.20-3.40); #Monocytes 0.6 thou/uL (0.11-0.59); %Basophils 0.2 % (0.0-1.0); %Eosinophils 1.1 % (0.0-10.0); %Lymphocytes 22.3 % (21.0-51.0); %Neutrophils 70.4 % (42.0-75.0); Hemoglobin 12.7 g/dL (14.0-18.0); Mean Corpuscular HGB CONC 33.5 g/dL (32.0-36.0); Mean Corpuscular Hemoglobin 29.6 pg (27.0-31.0); Mean Corpuscular Volume 88.5 fL (78.0-98.0); Mean Platelet Volume 7.7 fL (7.4-10.4); Platelet Count 237 thou/uL (130-400); RBC Distribution Width 13.1 % (11.5-14.5); Red Blood Cell (RBC) Count 4.29 mill/uL (4.70-6.10)
[2018-08-20 06:59] LABS: Anion Gap 14 mmol/L (10-20); BUN (Urea Nitrogen) 12 mg/dL (8.4-25.7); Calc. Creatinine Clearance 0 mL/min (70-130); Calcium 8.5 mg/dL (7.8-10.44); Carbon Dioxide 23 mmol/L (23-31); Cardiac Risk 3.8 (Less than 4.5); Chloride 101 mmol/L (98-107); Cholesterol 152 mg/dl (< 200 Desired); Estimated GFR-MDRD 71; Glucose 211 mg/dL (83-110); HDL Cholesterol 40 mg/dL (>60 Neg Risk); LDL Cholesterol, Calculated 86 mg/dL; Sodium 134 mmol/L (136-145); Triglycerides 132 mg/dL (Less than 150)
[2018-08-20] MEDS ORDERED: Non-Formulary Item 1 EACH (Esomeprazole Magnesium [Nexium] 40 MG) PO SCH (09:00)
[2018-08-20] MEDS ORDERED: Atorvastatin Calcium 10 MG TAB PO SCH ×2 (09:00)
[2018-08-20] MEDS: Aspirin 81 mg Enteric Coated Tablet PO SCH (09:08)
[2018-08-20] MEDS: Enoxaparin Sodium 40 MG/0.4 ML SYRINGE SC SCH (09:08)
[2018-08-20 09:17] LABS: Base Excess-Venous -0.2 mmol/L (0 (+/- 2.5)); Bicarbonate (HCO3v) 25.5 mmol/L (22.0-29.0); CO2 Tension (PvCO2) 44.8 mmHg (41.0-51.0); Calcium, Ionized 1.01 mmol/L (1.12-1.32); Hemoglobin - Calc 12.8 g/dL (12.0-18.0); O2 Tension (PvO2) 57.7 mmHg (35.0-45.0); Potassium 4.6 mmol/L (3.4-4.7); T. Carbon Dioxide 26.9 mmol/L (1.0-85.0); pH (Venous) 7.363 (7.35-7.45); vO2 Saturation-calc 88.3 % (94-98)
[2018-08-20] MEDS ORDERED: Iopamidol 370 76% 100 ML VIAL ONE (10:06)
[2018-08-20] MEDS ORDERED: HumaLOG 300 UNITS/3 ML VIAL SC PRN ×2 (10:47→11:01)
[2018-08-20] MEDS ORDERED: Nitroglycerin 0.4 MG TAB (25 Tab Bottle) SL PRN (10:47)
[2018-08-20] MEDS ORDERED: Non-Formulary Item 1 EACH (Levemir Flexpen [Levemir Flexpen] 35 UNIT) SC SCH (10:47)
[2018-08-20] MEDS ORDERED: Non-Formulary Item 1 EACH (Ranolazine [Ranexa] 1,000 MG) PO SCH (10:47)
[2018-08-20] MEDS ORDERED: cloNIDine 0.1 MG TAB PO PRN (10:47)
[2018-08-20] MEDS ORDERED: Insulin Glargine 35 UNITS in Pre-Filled Syringe 1 EACH SC SCH (11:15)
--- NOTE | 2018-08-20 12:07 | PDOC.PN ---
- Subjective Encounter Start Date: 08/20/18 Encounter Start Time: 12:05 Subjective: feels better. still not at baseline but no weakness or speech problem - Objective Resuscitation Status - Order Detail: 08/19/18 11:13 Resuscitation Status Routine Resuscitation Status: FULL: Full Resuscitation Discussed with: patient and daughter ULISES Reviewed: Yes Vital Signs & Weight: Vital Signs (12 hours) Temp Pulse Resp BP Pulse Ox 08/20/18 11:55 98.6 F 77 20 158/72 H 95 08/20/18 08:00 98.0 F 77 18 179/72 H 92 L 08/20/18 04:00 98.3 F 77 18 172/62 H 93 L Weight Weight 206 lb I&O: 08/19/18 08/20/18 08/21/18 06:59 06:59 06:59 Intake Total 120 240 Output Total 2 Balance 118 240 Result Diagrams: 08/20/18 05:42 08/20/18 05:42 Additional Labs: Accuchecks 08/20/18 08/20/18 10:55 05:49 POC Glucose 312 H 235 H Radiology Reviewed by me: Yes (carotid US-sub optimal.MRI brain -no CVA) Phys Exam - Physical Examination Constitutional: NAD HEENT: PERRLA, moist MMs, sclera anicteric, oral pharynx no lesions Neck: no nodes, no JVD, supple, full ROM Respiratory: no wheezing, no rales, no rhonchi, clear to auscultation bilateral Cardiovascular: RRR, no significant murmur, no rub Gastrointestinal: soft, non-tender, no distention, positive bowel sounds Musculoskeletal: no edema, pulses present Neurological: non-focal, normal sensation, moves all 4 limbs Psychiatric: normal affect, A&O x 3 Skin: no rash Dx/Plan (1) TIA (transient ischemic attack) Code(s): G45.9 - TRANSIENT CEREBRAL ISCHEMIC ATTACK, UNSPECIFIED Status: Acute (2) Uncontrolled diabetes mellitus Code(s): E11.65 - TYPE 2 DIABETES MELLITUS WITH HYPERGLYCEMIA Status: Chronic Qualifiers: Diabetes mellitus type: type 2 (3) Uncontrolled hypertension Code(s): I10 - ESSENTIAL (PRIMARY) HYPERTENSION Status: Chronic (4) PAD (peripheral artery disease) Code(s): I73.9 - PERIPHERAL VASCULAR DISEASE, UNSPECIFIED Status: Chronic (5) Coronary artery disease Code(s): I25.10 - ATHSCL HEART DISEASE OF [place] CORONARY ARTERY W/O ANG PCTRS Status: Chronic - Plan PT/OT, out of bed/ambulate, DVT proph w/SCDs suspect TIA. cont ASA.on plavix at home. -: increase statin dose -: CTA head and neck-pt vasculopath.may need CTS consult. -: Stroke team and Neuro consulted -: echo pending.HD stable.restart home meds as below-reconciled * . Review of Systems - Review of Systems Constitutional: weakness, malaise Eyes: negative: Pain, Vision Change, Conjunctivae Inflammation, Eyelid Inflammation, Redness, Other ENT: negative: Ear Pain, Ear Discharge, Nose Pain, Nose Discharge, Nose Congestion, Mouth Pain, Mouth Swelling, Throat Pain, Throat Swelling, Other Respiratory: negative: Cough, Dry, Shortness of Breath, Hemoptysis, SOB with Excertion, Pleuritic Pain, Sputum, Wheezing Cardiovascular: negative: chest pain, palpitations, orthopnea, paroxysmal nocturnal dyspnea, edema, light headedness, other Gastrointestinal: negative: Nausea, Vomiting, Abdominal Pain, Diarrhea, Constipation, Melena, Hematochezia, Other Genitourinary: negative: Dysuria, Frequency, Incontinence, Hematuria, Retention , Other Neurological: negative: Weakness, Numbness, Incoordination, Change in Speech, Confusion, Seizures, Other - Medications/Allergies Allergies/Adverse Reactions: Allergies Allergy/AdvReac Type Severity Reaction Status Date / Time levofloxacin [From Levaquin] Allergy Verified 04/30/18 03:15 Medications: Current Medications Acetaminophen (Tylenol) 650 mg PO Q4H PRN PRN Reason: Headache/Fever/Mild Pain (1-3) Alogliptin Benzoate (Alogliptin) 25 mg PO DAILY [facility] Amitriptyline HCl (Elavil) 10 mg PO HS [facility] Amlodipine Besylate (Norvasc) 10 mg PO QPM [facility] Last Admin: 08/20/18 00:00 Dose: Not Given Aspirin (Ecotrin) 81 mg PO DAILY [facility] Last Admin: 08/20/18 09:08 Dose: 81 mg Atorvastatin Calcium (Lipitor) 20 mg PO HS [facility] Clonidine (Catapres) 0.1 mg PO PRN PRN PRN Reason: Blood Pressure Clopidogrel Bisulfate (Plavix) 75 mg PO QPM [facility] Last Admin: 08/20/18 00:00 Dose: 75 mg Dextrose/Water (Dextrose 50%) 25 gm SLOW IVP PRN PRN PRN Reason: Hypoglycemia Enoxaparin Sodium (Lovenox) 40 mg SC 0900 [facility] Last Admin: 08/20/18 09:08 Dose: 40 mg Glucagon (Glucagon) 1 mg IM PRN PRN PRN Reason: Hypoglycemia Hydralazine HCl (Apresoline) 10 mg SLOW IVP Q6H PRN PRN Reason: SBP Greater Than 170 Dextrose/Water (D5w) 1,000 mls @ 0 mls/hr IV .Q0M PRN PRN Reason: Hypoglycemia Insulin Glargine 35 units/ (Miscellaneous Medication) 0.35 mls @ 0 mls/hr SC BID [facility] Insulin Glargine 35 units/ (Miscellaneous Medication) 0.35 mls @ 0 mls/hr SC NOW [facility] Stop: 08/20/18 13:00 Last Admin: 08/20/18 11:51 Dose: 0.35 mls Insulin Human Lispro (Humalog) 0 units SC .MILD SLIDING SCALE PRN PRN Reason: Mild Correctional Scale Last Admin: 08/20/18 11:45 Dose: 5 unit Insulin Human Lispro (Humalog) 10 units SC TID-WM PRN PRN Reason: Hyperglycemia Isosorbide Mononitrate (Imdur) 60 mg PO NOW [facility] Stop: 08/20/18 13:00 Last Admin: 08/20/18 11:45 Dose: 60 mg Isosorbide Mononitrate (Imdur) 60 mg PO DAILY [facility] Metoprolol Succinate (Toprol Xl) 100 mg PO QPM [facility] Nitroglycerin (Nitrostat) 0.4 mg SL PRN PRN PRN Reason: Chest Pain Oxybutynin Chloride (Ditropan) 5 mg PO HS [facility] Pantoprazole Sodium (Protonix) 40 mg PO DAILY [facility] Last Admin: 08/20/18 09:08 Dose: 40 mg Ranolazine (Ranexa) 1,000 mg PO BID [facility] Ranolazine (Ranexa) 1,000 mg PO NOW [facility] Stop: 08/20/18 13:00 Last Admin: 08/20/18 11:47 Dose: 1,000 mg Senna/Docusate Sodium (Senokot S) 2 tab PO BIDPRN PRN PRN Reason: Constipation Last Admin: 08/20/18 00:00 Dose: 2 tab Sodium Chloride (Flush - Normal Saline) 10 ml IVF PRN PRN PRN Reason: Saline Flush Tamsulosin HCl (Flomax) 0.4 mg PO QPM [facility]
--- NOTE | 2018-08-20 12:20 | CT ---
CT HEAD WITHOUT CONTRAST: CT ANGIOGRAM HEAD AND NECK: HISTORY: TIA. COMPARISON: Noncontrast head CT from 08/19/2018. FINDINGS: CT HEAD: Stable remote lacunar infarct involving the posterior aspect of the right lentiform nucleus . No parenchymal hemorrhage. No extraaxial hematoma. No midline shift. The basilar cisterns are p atent. Stable appearance of the ventricular system. Preservation of cortical krishnamurthy white matter diff erentiation. The calvarium is intact. Atherosclerosis of the carotid arteries is noted. Adequate a eration of the sinuses and mastoid air cells. CT HEAD POST CONTRAST: There is no pathologic enhancement of the brain parenchyma. Cortical krishnamurthy wh ite matter differentiation is preserved. Bilateral ocular lenses are appropriately located. Both globes are intact. Retrobulbar fat is prese rved. Symmetric attenuation of the optic nerves and ocular rectus muscles. The aerodigestive tract is patent. No mucosal abnormality. Midline fatty raphe of the tongue is pre served. The epiglottis has a normal caliber. Pre-epiglottic fat is preserved. Mild narrowing of the left and right aspect of the supraglottic larynx, secondary to medial deviation of both carotid arteries. There is previous post surgical change involving the cervical spine. Fusion hardware and laminectomy defects are noted. There are varying degrees of central canal stenosis and foraminal narrowing on t he basis of degenerative change. Symmetric attenuation of the sternocleidomastoid muscles. Fatty replacement of the parotid glands is symmetric. Unremarkable submandibular gland. Unremarkable thyroid gland. No evidence of lymphaden opathy by size criteria. The upper mediastinum and lung apices are unremarkable. CT ANGIOGRAM: The aortic arch has appropriate enhancement and luminal diameter. Atherosclerosis is noted. RIGHT CAROTID: The right carotid artery origin has appropriate enhancement and luminal diameter. Th e right common carotid artery, carotid bifurcation, and internal carotid artery have appropriate enha ncement and luminal diameter. LEFT CAROTID: The left carotid artery origin has appropriate enhancement and luminal diameter. The left common carotid artery has appropriate enhancement and luminal diameter. There is complete occlu guzman of the left carotid artery, at the level of the carotid bifurcation, extending into the distal c ervical left intracranial internal carotid artery. Both vertebral arteries are patent throughout the ir course in the neck. The vertebral arteries are essentially codominant. Both subclavian arteries are patent. Of note, the right subclavian artery has an aberrant origin. CT ANGIO HEAD: There is absence of enhancement involving the distal cervical and intracranial left i nternal carotid artery, to the level of the left paraclinoid segment. There is enhancement involving the left paraclinoid and terminal internal carotid artery. There is also evidence of enhancement an d appropriate luminal diameter of the left A1 and left M1 segments. Supply to the left A1 and M1 seg ments may be secondary to collaterals from the ophthalmic artery and possibly patent anterior communi cating artery. The right intracranial internal carotid artery does demonstrate atherosclerotic disea se. There is mild narrowing of the cavernous and paraclinoid segment. The right A1 and M1 segments have appropriate enhancement and luminal diameter. The proximal A2 segment and MCA branches are appr opriate. POSTERIOR CIRCULATION: There is atherosclerosis involving both vertebral arteries. Limited evaluati on of both PICA origins. Both vertebral arteries supply a normal caliber basilar artery. The left a nd right P1 segments have appropriate enhancement and luminal diameter. IMPRESSION: 1. 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 There is appropri ate enhancement and luminal diameter of the left A1 and M1 segments, likely due to collateral flow fr om a patent anterior communicating artery and possibly via the left ophthalmic artery. 2. With regard to the right carotid artery, no significant stenosis based upon NASCET criteria. POS: [facility]
[2018-08-20] MEDS: Insulin Glargine 35 UNITS in Pre-Filled Syringe 1 EACH SC SCH (20:52)
[2018-08-20] MEDS: Clopidogrel Bisulfate 75 MG TAB PO SCH ×2 (20:53)
[2018-08-20] MEDS: Amlodipine 10 MG TAB PO SCH ×2 (20:54)
[2018-08-20] MEDS ORDERED: Oxybutynin 5 MG TAB PO SCH (21:00)
[2018-08-20] MEDS ORDERED: Tamsulosin HCl 0.4 MG CAP PO SCH (21:00)
[2018-08-20] MEDS ORDERED: Atorvastatin Calcium 20 MG TAB PO SCH (21:00)
[2018-08-20] MEDS ORDERED: Amitriptyline HCl 10 MG TAB PO SCH (21:00)
--- NOTE | 2018-08-21 01:01 | CON ---
DATE OF CONSULTATION: 08/20/2018 REASON FOR CONSULTATION: Evaluate the patient with carotid disease. HISTORY OF PRESENT ILLNESS: Mr. Torres presented through the Emergency Department with slurred speech. Initial evaluation included a carotid ultrasound. An ultrasound was difficult due to the patient's body habitus. His right internal carotid artery peak systolic velocity 75 with a ratio of 1.4. Left internal carotid artery was unable to be evaluated due to the patient's body habitus. This was followed up with a CT angiogram. CT angiogram shows no stenosis in the right carotid systems. The left internal carotid artery is occluded. PAST MEDICAL HISTORY: 1. Coronary artery disease. 2. Congestive heart failure. 3. Diabetes mellitus. 4. Dyslipidemia. 5. Hypertension. 6. History of prostate cancer. 7. History of migraines. 8. Peripheral vascular disease. PAST SURGICAL HISTORY: 1. Laminectomy. 2. Cervical fusion. 3. Coronary artery bypass grafting. 4. Lumbar laminectomy. SOCIAL HISTORY: He does not use tobacco, alcohol, or other drugs. He lives at home and uses a walker and a motorized wheelchair to get around. ALLERGIES: LEVAQUIN. CURRENT MEDICATIONS: Noted. PHYSICAL EXAMINATION: VASCULAR: The patient has no carotid bruits. LUNGS: Clear bilaterally. HEART: Rhythm is regular. NEUROLOGIC: Essentially symmetric. ASSESSMENT AND PLAN: Occluded left internal carotid artery with a widely patent right internal carotid artery. Would recommend chronic aspirin only. There is no surgical intervention indicated. Job ID: [id number]
--- NOTE | 2018-08-21 01:39 | CON ---
DATE OF CONSULTATION: 08/20/2018 CHIEF COMPLAINT: Possible CVA. HISTORY OF PRESENT ILLNESS: The patient is a 73-year-old man with multiple medical issues. The patient was diagnosed with coronary artery disease 4 months ago. He did have a previous history of bypass and stent placement as well and he was told that he has some more blockages. He has a revenue tax specialist. The patient tried to get up yesterday and he had slurred speech, which lasted for several hours from 7 a.m. onwards and it resolved eventually. The patient's family is in the room, several family members gave medical history. The daughter stated that this has happened to him multiple times during the last week at least 3 times in the past week, and he returns back to normal. He sometimes has blurred vision. No history of any weakness or numbness. The patient takes aspirin and Plavix on a daily basis and the patient had some weakness on the right side. The patient uses a scooter and a walker or a cane due to his right leg problems. The patient has had prior surgery, and at this time at baseline, he is not walking normally. PREVIOUS MEDICAL HISTORY: Coronary artery bypass graft in 2009, coronary artery disease with a stent in 2014, neck surgery in 2009, and also between 2009 to 2014 he had a neck surgery as well as lower back surgeries. Previous medical history is positive for coronary artery disease, congestive heart failure, diabetes, dyslipidemia, hypertension, prostate cancer, migraine, and peripheral vascular disease. FAMILY HISTORY: Positive for father who from heart disease at age 77. Mother at 80 from a stroke. Brother from CVA at age 55. The patient has 8 children. One brother has coronary artery disease and CVA and he is now 76 years old. SOCIAL HISTORY: The patient quit smoking and alcohol. He uses scooter and walker or a cane. Lives with his family. ALLERGIES: HE IS ALLERGIC TO LEVOFLOXACIN, AND HE IS NOT SURE WHAT THE REACTION IS. REVIEW OF SYSTEMS: PULMONARY: Negative for shortness of breath. Negative for chest pain or palpitations. GI: Negative for diarrhea or vomiting. HEMATOLOGIC: Negative for bleeding or diatheses. CARDIOVASCULAR: Positive for coronary artery disease and heart failure. NEUROLOGICAL: Positive for blurred vision at times, and speech is slurred speech, and gait disturbance. MUSCULOSKELETAL: Positive for chronic back and neck problems. MEDICATIONS: His home medications were reviewed and he takes aspirin and Plavix as well as atorvastatin at home. LABORATORY WORKUP: White count 10.0, hemoglobin 12.7, hematocrit 38, platelet count 237. Sodium 134, potassium 4, chloride 101, bicarb 23, BUN 12, creatinine 1.03, triglyceride 132, cholesterol 152, LDL 86, HDL 40. Heart disease risk ratio 3.8. Glucose 235, and his MRI of the brain was reviewed and there was no evidence of any acute infarction. He does have mild chronic ischemic disease, and his CT angiography showed left complete vascular occlusion of left carotid artery starting at the level of left carotid bifurcation extending to the cervical and intracranial left ICA, and there is appropriate enhancement in luminal diameter of left A1 and M1 segments, likely due to collaterals from the patent TREMAYNE, probably via left ophthalmic artery. With regard to the right carotid, no stenosis was noted, and his echocardiogram is pending. Carotid Doppler showed left carotid peak velocity of 51 cm/sec, remainder could not be assessed. Right ICA systolic velocity is 75 cm/ sec. PHYSICAL EXAMINATION: VITAL SIGNS: Blood pressure was 158/72, temperature 98.6, pulse 77, respiratory rate 20. GENERAL APPEARANCE: Well-built, well-nourished gentleman who is sitting up in bed. CHEST: Clear vesicular breathing. CARDIOVASCULAR: S1 and S2 heard. No murmurs. Carotids are clear. ABDOMEN: Soft. NEUROLOGICAL: Higher intellectual functions, appropriate conversation. Orientation is normal. Cranial nerves II through XII, normal pupillary reaction. Normal extraocular movements. Normal sensation of face bilaterally. Tongue midline. No atrophy noted. Motor exam; normal strength of facial muscles bilaterally. Bulk normal, tone normal, strength 5/5 throughout in iliopsoas, hamstrings, quadriceps, ankle dorsiflexion, plantar flexion, deltoid, triceps, biceps, wrist extension, and flexion bilaterally. He had mild rigidity in the right arm and mild weakness in the right leg. Sensory examination was symmetrical decline in the lower extremities bilaterally. Deep tendon reflexes were absent. Cerebellar; normal finger-to- nose and [id number]. Gait was not testable, when he got up from the bed, he was unsteady. IMPRESSION: The patient is a 73-year-old man with longstanding gait problems and is using a scooter or a walker or cane at home. I suspect those are due to his long-standing chronic back problems. He has had coronary artery disease, diabetes, hypercholesterolemia, and he comes in with slurred speech, but no other neurological symptoms. His examination is essentially unremarkable except for mild rigidity in the right arm and absent knee jerk on the left side and right lower extremity was 4/5. Clinical findings are more consistent with motor weakness which is chronic and speech is now normal. Diagnosis is most consistent with possible transient ischemic attack. Based on evaluation of his CT angiogram, he seems to have a carotid artery blockage on the left side, which also seems to be chronic. Per family members 4 months ago, he was at another hospital and they were told he had carotid artery blockage. At this time, I do think he will benefit from further workup. RECOMMENDATIONS: Continue aspirin with Plavix. Please consult Vascular Surgery for his carotid occlusion. He will need physical therapy and rehab for improving his strength in his lower extremities. He will also need outpatient neurology follow up. Job ID: [id number] MTDD
[2018-08-21] MEDS: HumaLOG 300 UNITS/3 ML VIAL SC PRN (05:40)
[2018-08-21] MEDS: Enoxaparin Sodium 40 MG/0.4 ML SYRINGE SC SCH (08:39)
[2018-08-21] MEDS: Insulin Glargine 35 UNITS in Pre-Filled Syringe 1 EACH SC SCH (08:39)
[2018-08-21] MEDS: Aspirin 81 mg Enteric Coated Tablet PO SCH (08:39)
[2018-08-21] MEDS ORDERED: Alogliptin 25 MG TAB PO SCH (09:00)
[2018-08-21] MEDS ORDERED: Non-Formulary Item 1 EACH (Linagliptin [Tradjenta] 5 MG) PO SCH (09:00)
[2018-08-21 11:04] VITALS: TEMP 98.4
[2018-08-21 11:47] VITALS: BP 103/53
--- NOTE | 2018-08-21 13:05 | DIS ---
DATE OF ADMISSION: 08/19/2018 DATE OF DISCHARGE: 08/21/2018 PRIMARY CARE PHYSICIAN: Jeanine Cheng DO CONDITION: At the time of discharge, stable and improved. DISCHARGE DISPOSITION: Home with home health. DISCHARGE DIAGNOSES: 1. Transient ischemic attack. 2. Peripheral arterial disease. 3. Carotid arterial disease. 4. Coronary arterial disease status post coronary artery bypass grafting in 2009 and stenting in 2014. 5. Hypertension, controlled. 6. Uncontrolled diabetes mellitus. DISCHARGE MEDICATIONS: New medications; 1. Plavix 75 mg daily. 2. Lipitor 20 mg daily. Resume following home medications; 1. Ranexa 1000 b.i.d. 2. Amitriptyline 10 daily. 3. Isosorbide mononitrate 60 daily. 4. Toprol 100 mg daily. 5. Flomax 0.4 mg daily. 6. Linagliptin 5 mg daily. 7. Ditropan 5 mg daily. 8. Amlodipine 10 mg daily. 9. Humalog. 10. Levemir 35 b.i.d. 11. Clonidine p.r.n. 12. Nitroglycerin p.r.n. 13. Nexium 40 mg daily. IN-HOUSE CONSULTATIONS: 1. Neurology, Cora Castillo MD. 2. Cardiovascular Surgery, Pankaj Justice MD. PROCEDURES: The hospital; 1. CT scan of the brain upon presentation, which showed no acute intracranial process. 2. MRI of the brain for workup of stroke, which showed no acute infarction, mass effect of midline shift. 3. Carotid Doppler ultrasound, which was a suboptimal study. 4. CT angio of the head and neck shows left carotid arterial occlusion and collateral flow from a patent anterior communicating artery and right carotid artery was patent. HISTORY OF PRESENTING ILLNESS: Mr. Torres is a 73-year-old male with significant history of vascular disease including coronary artery disease and peripheral arterial disease, who presented to the emergency room with complaints of slurred speech. His initial CT scan of the brain was unremarkable. Labs were within normal limits. An EKG did not show any arrhythmia. He was admitted with a presumptive diagnosis of TIA and further workup. Please see admission history and physical for further details. He underwent stroke workup, which did not show any evidence for acute infarction. He did have left carotid arterial occlusion, for which a CT angio was done, which confirmed the finding. Vascular Surgery, Dr. Justice was consulted and at this time, he recommended medical management. He was also seen by Neurology, Dr. Castillo, who recommended adding Plavix to his aspirin, which was done. His atorvastatin dose was increased from 10 mg to 20 mg daily. On the day of discharge, he is feeling better and his symptoms have resolved. He has no deficits. He will be discharged home with home health. He was seen and examined prior to discharge. PHYSICAL EXAMINATION: This morning; VITAL SIGNS: Temperature 98.4, pulse is 61, respirations 20, saturating 92% on room air, and blood pressure of 121/56. GENERAL: No acute distress. Awake, alert, and oriented x3. CHEST: Clear to auscultation bilaterally. HEART: Rate and rhythm are regular. NEUROLOGIC: Largely nonfocal. Discharge plan was discussed with the patient, who verbalized understanding. Primary care physician, Jeanine Cheng DO Job ID: [id number]
== END 2018-08-21 15:09 | disposition home or self-care (01) ==
LOC: ERS 08:47 → SCSEROBS 12:06 → ERHOLD 12:08 → 2SE 18:34
PROVIDERS: ADMIT Internal Medicine; ATTEND Internal Medicine
DX: G45.9 Transient cerebral ischemic attack, unspecified (principal); E11.51 Type 2 diabetes mellitus with diabetic peripheral angiopathy without gangrene; I25.10 Atherosclerotic heart disease of native coronary artery without angina pectoris; I11.0 Hypertensive heart disease with heart failure; I50.9 Heart failure, unspecified; E11.65 Type 2 diabetes mellitus with hyperglycemia; G43.909 Migraine, unspecified, not intractable, without status migrainosus; Z87.891 Personal history of nicotine dependence; Z79.02 Long term (current) use of antithrombotics/antiplatelets; Z79.4 Long term (current) use of insulin; Z79.899 Other long term (current) drug therapy; Z88.1 Allergy status to other antibiotic agents; Z95.1 Presence of aortocoronary bypass graft; Z95.5 Presence of coronary angioplasty implant and graft; Z98.1 Arthrodesis status; Z98.890 Other specified postprocedural states
CPT/HCPCS: 70450; 70496; 70498; 70551; 71045; 80048; 80053; 80061; 82010; 82330; 82435; 82803; 82962 ×3; 84132; 84295; 84484; 85014; 85025 ×2; 85610; 85730; 93005; 93306; 93880; 96372 ×2; 97110; 97116; 97139 ×5; 97530; 99285; G0378 ×5; 36415; 36416; J1650

== ENCOUNTER 2021-11-22 18:56 | Inpatient (IN) | payer MEDICARE ==
[2021-11-22 19:30] LABS: #Eosinphils 0.2 thou/uL (0.0-0.7); #Lymphocytes 2.3 thou/uL (1.20-3.40); #Monocytes 0.6 thou/uL (0.11-0.59); #Neutrophils 6.7 thou/uL (1.40-6.50); %Eosinophils 2.4 % (0.0-10.0); %Lymphocytes 23.1 % (21.0-51.0); %Monocytes 5.8 % (0.0-10.0); %Neutrophils 68.7 % (42.0-75.0); Mean Corpuscular HGB CONC 34.5 g/dL (32.0-36.0); Mean Corpuscular Hemoglobin 32.1 pg (27.0-31.0); Mean Corpuscular Volume 92.9 fL (78.0-98.0); Mean Platelet Volume 7.7 fL (7.4-10.4); Platelet Count 246 thou/uL (130-400); RBC Distribution Width 12.6 % (11.5-14.5); Red Blood Cell (RBC) Count 3.44 mill/uL (4.70-6.10); White Blood Cell (WBC) Count 9.8 thou/uL (4.8-10.8)
[2021-11-22 19:51] LABS: Acetaminophen Less than 10.0 mcg/mL (10.0-30.0); Alcohol Less than 10 mg/dL (Less than 10); Salicylate Less than 8.0 mg/dL (15.0-30.0)
[2021-11-22 19:52] LABS: ALT (SGPT) 19 U/L (8-55); AST (SGOT) 21 U/L (5-34); Albumin 3.9 g/dL (3.4-4.8); Alkaline Phosphatase 82 U/L (40-110); Anion Gap 17 mmol/L (10-20); BUN (Urea Nitrogen) 31 mg/dL (8.4-25.7); Bilirubin, Total 0.6 mg/dL (0.2-1.2); Calc. Creatinine Clearance 0 mL/min (70-130); Carbon Dioxide 23 mmol/L (23-31); Chloride 98 mmol/L (98-107); Globulin 3.1 g/dL (2.4-3.5); Glucose 171 mg/dL (83-110); Lipase 12 U/L (8-78); Potassium 4.6 mmol/L (3.5-5.1); Sodium 133 mmol/L (136-145)
[2021-11-22] MEDS ORDERED: Loperamide HCl 2 MG CAP PO PRN (21:17)
[2021-11-22] MEDS ORDERED: Senokot S 8.6-50 MG TAB PO PRN (21:17)
[2021-11-22] MEDS ORDERED: Nitroglycerin 0.4 MG TAB (25 Tab Bottle) SL PRN (21:17)
[2021-11-22] MEDS ORDERED: Ondansetron PF 4 MG/2 ML Vial IVP PRN (21:17)
[2021-11-22] MEDS ORDERED: HumaLOG 300 UNITS/3 ML VIAL SC PRN (21:21)
[2021-11-22 22:17] LABS: Troponin I 0.016 ng/mL (< 0.028)
[2021-11-22 22:20] LABS: Magnesium 1.5 mg/dL (1.6-2.6)
[2021-11-22 23:44] VITALS: BMI 30.4
[2021-11-23] MEDS ORDERED: Magnesium 2 GM/50 ML(in water) 2 GM in Premix Bag 1 BAG IVPB SCH ×2 (00:15→06:00)
[2021-11-23 01:31] LABS: Troponin I 0.026 ng/mL (< 0.028)
[2021-11-23 05:03] LABS: Bilirubin Negative (Negative); Blood, Urine Negative (Negative); Clarity Clear (Clear); Glucose, Urine (Dipstick) Normal (Negative); Ketone, Urine Negative (Negative); Leukocyte Negative Leu/uL (Negative); Nitrite Negative (Negative); Protein, Urine (Dipstick) Negative (Neg-Trace); Specific Gravity, Urine 1.019 (1.002-1.036); Urobilinogen Normal mg/dL (Less than 2)
[2021-11-23 05:08] LABS: #Eosinphils 0.3 thou/uL (0.0-0.7); #Lymphocytes 2.7 thou/uL (1.20-3.40); #Monocytes 0.8 thou/uL (0.11-0.59); #Neutrophils 5.7 thou/uL (1.40-6.50); %Basophils 0.2 % (0.0-1.0); %Eosinophils 2.7 % (0.0-10.0); %Lymphocytes 28.6 % (21.0-51.0); %Monocytes 8.1 % (0.0-10.0); %Neutrophils 60.4 % (42.0-75.0); Hemoglobin 10.3 g/dL (14.0-18.0); Mean Corpuscular HGB CONC 33.3 g/dL (32.0-36.0); Mean Corpuscular Hemoglobin 31.2 pg (27.0-31.0); Mean Corpuscular Volume 93.9 fL (78.0-98.0); Mean Platelet Volume 8.1 fL (7.4-10.4); Platelet Count 234 thou/uL (130-400); RBC Distribution Width 12.4 % (11.5-14.5); Red Blood Cell (RBC) Count 3.29 mill/uL (4.70-6.10); White Blood Cell (WBC) Count 9.4 thou/uL (4.8-10.8)
[2021-11-23 05:13] LABS: Amphetamine Not Detected (NotDetected); Barbiturates Screen Not Detected (NotDetected); Benzodiazepine Screen Not Detected (NotDetected); Cocaine Metabolite Screen Not Detected (NotDetected); Methadone Not Detected (NotDetected); Methamphetamine Not Detected (NotDetected); Opiate Screen Detected (NotDetected); Oxycodone Screen Not Detected (NotDetected); Phencyclidine (PCP) Not Detected (NotDetected); THC/Cannabinoid Screen Not Detected (NotDetected); Tricyclic Screen Not Detected (NotDetected)
[2021-11-23 05:33] LABS: Anion Gap 13 mmol/L (10-20); BUN (Urea Nitrogen) 31 mg/dL (8.4-25.7); Calc. Creatinine Clearance 51 mL/min (70-130); Calcium 7.7 mg/dL (7.8-10.44); Carbon Dioxide 24 mmol/L (23-31); Chloride 102 mmol/L (98-107); Cholesterol 123 mg/dl (< 200 Desired); Glucose 151 mg/dL (83-110); HDL Cholesterol 31 mg/dL (>60 Neg Risk); LDL Cholesterol, Calculated 67 mg/dL; Sodium 135 mmol/L (136-145); Triglycerides 124 mg/dL (Less than 150)
[2021-11-23] MEDS ORDERED: Enoxaparin Sodium 30 MG/0.3 ML SYRINGE SC SCH (09:00)
[2021-11-23] MEDS: Aspirin Chewable 81 MG TAB PO SCH (09:25)
[2021-11-23] MEDS: Famotidine 20 MG TAB PO SCH (09:25)
[2021-11-23] MEDS: Clopidogrel Bisulfate 75 MG TAB PO SCH (09:25)
[2021-11-23] MEDS: Sodium Chloride 0.9% 1,000 ML IV SCH ×2 (12:39→21:53)
[2021-11-23 16:11] LABS: SARS-CoV-2 PCR by NAA Not Detected (NotDetected)
[2021-11-23] MEDS: hydrALAZINE 20 MG/ML VIAL SLOW IVP PRN (18:34)
[2021-11-23] MEDS: Acetaminophen 325 MG TAB PO PRN (21:48)
[2021-11-24] MEDS: hydrALAZINE 20 MG/ML VIAL SLOW IVP PRN ×4 (00:14→16:49)
[2021-11-24 04:35] LABS: #Basophils 0.1 thou/uL (0.0-0.2); #Eosinphils 0.2 thou/uL (0.0-0.7); #Lymphocytes 2.1 thou/uL (1.20-3.40); #Monocytes 0.7 thou/uL (0.11-0.59); #Neutrophils 6.1 thou/uL (1.40-6.50); %Basophils 0.5 % (0.0-1.0); %Eosinophils 2.4 % (0.0-10.0); %Lymphocytes 23.4 % (21.0-51.0); %Monocytes 7.5 % (0.0-10.0); %Neutrophils 66.1 % (42.0-75.0); Hemoglobin 11.6 g/dL (14.0-18.0); Mean Corpuscular HGB CONC 33.7 g/dL (32.0-36.0); Mean Corpuscular Hemoglobin 31.7 pg (27.0-31.0); Mean Corpuscular Volume 94.1 fL (78.0-98.0); Mean Platelet Volume 7.7 fL (7.4-10.4); Platelet Count 257 thou/uL (130-400); RBC Distribution Width 12.6 % (11.5-14.5); Red Blood Cell (RBC) Count 3.64 mill/uL (4.70-6.10); White Blood Cell (WBC) Count 9.2 thou/uL (4.8-10.8)
[2021-11-24 04:56] LABS: Anion Gap 11 mmol/L (10-20); BUN (Urea Nitrogen) 14 mg/dL (8.4-25.7); Calc. Creatinine Clearance 91 mL/min (70-130); Carbon Dioxide 27 mmol/L (23-31); Chloride 103 mmol/L (98-107); Glucose 126 mg/dL (83-110); Potassium 3.8 mmol/L (3.5-5.1); Sodium 137 mmol/L (136-145)
[2021-11-24] MEDS: Sodium Chloride 0.9% 1,000 ML IV SCH (08:39)
[2021-11-24] MEDS: Clopidogrel Bisulfate 75 MG TAB PO SCH (08:40)
[2021-11-24] MEDS: Enoxaparin Sodium 40 MG/0.4 ML SYRINGE SC SCH (08:40)
[2021-11-24] MEDS: Aspirin Chewable 81 MG TAB PO SCH (08:40)
[2021-11-24] MEDS: Famotidine 20 MG TAB PO SCH (08:40)
[2021-11-24] MEDS: Valsartan 80 MG TAB PO SCH ×2 (08:52→21:20)
[2021-11-24] MEDS: Acetaminophen 325 MG TAB PO PRN (12:10)
[2021-11-24] MEDS ORDERED: Morphine 2 MG/ML VIAL SLOW IVP PRN (14:02)
[2021-11-24] MEDS: metFORMIN 500 MG TAB PO SCH (16:47)
[2021-11-24] MEDS: HumaLOG 300 UNITS/3 ML VIAL SC SCH (16:51)
[2021-11-24] MEDS: NIFEdipine XL 30 MG TAB PO SCH (21:19)
[2021-11-24] MEDS: Atorvastatin Calcium 40 MG TAB PO SCH (21:19)
[2021-11-24] MEDS: Gabapentin 100 MG CAP PO SCH (21:19)
[2021-11-24] MEDS: Montelukast Sodium 10 mg Tablet PO SCH (21:19)
[2021-11-24] MEDS: Insulin Glargine 30 UNITS/0.3 ML VIAL SC SCH (21:19)
[2021-11-25] MEDS: hydrALAZINE 20 MG/ML VIAL SLOW IVP PRN
[2021-11-25 05:00] LABS: Albumin 3.5 g/dL (3.4-4.8); Anion Gap 12 mmol/L (10-20); BUN (Urea Nitrogen) 10 mg/dL (8.4-25.7); BUN/Creatinine Ratio 13.16; Calc. Creatinine Clearance 94 mL/min (70-130); Calcium 7.9 mg/dL (7.8-10.44); Carbon Dioxide 25 mmol/L (23-31); Chloride 106 mmol/L (98-107); Glucose 123 mg/dL (83-110); Magnesium 1.8 mg/dL (1.6-2.6); Phosphorus 2.7 mg/dL (2.3-4.7); Sodium 139 mmol/L (136-145)
[2021-11-25] MEDS: Valsartan 80 MG TAB PO SCH ×2 (08:50→21:42)
[2021-11-25] MEDS: Aspirin Chewable 81 MG TAB PO SCH (08:51)
[2021-11-25] MEDS: Clopidogrel Bisulfate 75 MG TAB PO SCH (08:51)
[2021-11-25] MEDS: metFORMIN 500 MG TAB PO SCH ×2 (08:51→17:53)
[2021-11-25] MEDS: NIFEdipine XL 30 MG TAB PO SCH (08:51)
[2021-11-25] MEDS: Gabapentin 100 MG CAP PO SCH ×2 (08:51→21:47)
[2021-11-25] MEDS: Enoxaparin Sodium 40 MG/0.4 ML SYRINGE SC SCH (08:55)
[2021-11-25] MEDS: HYDROcodone/Acetaminophen 5/325 mg Tablet PO PRN ×2 (08:56→17:53)
[2021-11-25] MEDS: HumaLOG 300 UNITS/3 ML VIAL SC SCH ×3 (09:00→17:55)
[2021-11-25] MEDS ORDERED: NIFEdipine XL 30 MG TAB PO SCH ×2 (09:41→21:00)
[2021-11-25] MEDS ORDERED: NIFEdipine XL 60 MG TAB PO SCH (10:00)
[2021-11-25] MEDS: Carvedilol 6.25 MG TAB PO SCH (17:53)
[2021-11-25] MEDS ORDERED: Non-Formulary Item 1 EACH (Ranolazine [Ranexa] 1,000 MG Tab.Er.12h) PO SCH (21:00)
[2021-11-25] MEDS: NIFEdipine XL 60 MG TAB PO SCH (21:42)
[2021-11-25] MEDS: Montelukast Sodium 10 mg Tablet PO SCH (21:43)
[2021-11-25] MEDS: Insulin Glargine 30 UNITS/0.3 ML VIAL SC SCH (21:43)
[2021-11-25] MEDS: Atorvastatin Calcium 40 MG TAB PO SCH (21:43)
[2021-11-26] MEDS: HYDROcodone/Acetaminophen 5/325 mg Tablet PO PRN ×2 (05:29→13:59)
[2021-11-26] MEDS: Enoxaparin Sodium 40 MG/0.4 ML SYRINGE SC SCH (09:07)
[2021-11-26] MEDS: metFORMIN 500 MG TAB PO SCH ×2 (09:07→16:32)
[2021-11-26] MEDS: Clopidogrel Bisulfate 75 MG TAB PO SCH (09:07)
[2021-11-26] MEDS: Carvedilol 6.25 MG TAB PO SCH ×2 (09:07→16:32)
[2021-11-26] MEDS: Gabapentin 100 MG CAP PO SCH ×2 (09:07→19:43)
[2021-11-26] MEDS: Aspirin Chewable 81 MG TAB PO SCH (09:07)
[2021-11-26] MEDS: Valsartan 80 MG TAB PO SCH ×2 (09:08→19:43)
[2021-11-26] MEDS: NIFEdipine XL 60 MG TAB PO SCH (09:08)
[2021-11-26] MEDS: Acetaminophen 325 MG TAB PO PRN (09:08)
[2021-11-26] MEDS: HumaLOG 300 UNITS/3 ML VIAL SC SCH ×3 (09:09→17:18)
[2021-11-26] MEDS: Atorvastatin Calcium 40 MG TAB PO SCH (19:42)
[2021-11-26] MEDS: Montelukast Sodium 10 mg Tablet PO SCH (19:43)
[2021-11-26] MEDS: Insulin Glargine 30 UNITS/0.3 ML VIAL SC SCH (21:08)
[2021-11-27] MEDS: Carvedilol 6.25 MG TAB PO SCH ×2 (08:29→17:03)
[2021-11-27] MEDS: Clopidogrel Bisulfate 75 MG TAB PO SCH (08:29)
[2021-11-27] MEDS: Aspirin Chewable 81 MG TAB PO SCH (08:29)
[2021-11-27] MEDS: Gabapentin 100 MG CAP PO SCH ×2 (08:29→20:07)
[2021-11-27] MEDS: metFORMIN 500 MG TAB PO SCH ×2 (08:29→16:41)
[2021-11-27] MEDS: Enoxaparin Sodium 40 MG/0.4 ML SYRINGE SC SCH (08:29)
[2021-11-27] MEDS: Valsartan 80 MG TAB PO SCH ×2 (08:30→20:07)
[2021-11-27] MEDS: HumaLOG 300 UNITS/3 ML VIAL SC SCH ×3 (08:30→16:41)
[2021-11-27] MEDS: HYDROcodone/Acetaminophen 5/325 mg Tablet PO PRN ×2 (08:35→17:03)
[2021-11-27] MEDS ORDERED: NIFEdipine XL 90 MG TAB PO SCH (09:00)
[2021-11-27] MEDS ORDERED: NIFEdipine XL 60 MG TAB PO SCH ×2 (09:00)
[2021-11-27] MEDS: Lidocaine 5% Patch TD SCH (11:10)
[2021-11-27] MEDS: Montelukast Sodium 10 mg Tablet PO SCH (20:08)
[2021-11-27] MEDS: Atorvastatin Calcium 40 MG TAB PO SCH (20:08)
[2021-11-27] MEDS: Insulin Glargine 30 UNITS/0.3 ML VIAL SC SCH (21:00)
[2021-11-27] MEDS: Transdermal Patch Removal TOP SCH (21:27)
[2021-11-28] MEDS: HYDROcodone/Acetaminophen 5/325 mg Tablet PO PRN ×2 (03:28→18:28)
[2021-11-28] MEDS: hydrALAZINE 20 MG/ML VIAL SLOW IVP PRN (06:28)
[2021-11-28 08:07] LABS: Anion Gap 15 mmol/L (10-20); BUN (Urea Nitrogen) 14 mg/dL (8.4-25.7); Calc. Creatinine Clearance 90 mL/min (70-130); Calcium 8.2 mg/dL (7.8-10.44); Carbon Dioxide 24 mmol/L (23-31); Chloride 100 mmol/L (98-107); Glucose 117 mg/dL (83-110); Potassium 4.5 mmol/L (3.5-5.1); Sodium 134 mmol/L (136-145)
[2021-11-28] MEDS ORDERED: NIFEdipine XL 60 MG TAB PO SCH ×3 (09:00→10:15)
[2021-11-28] MEDS: Carvedilol 6.25 MG TAB PO SCH ×2 (09:46→17:50)
[2021-11-28] MEDS: metFORMIN 500 MG TAB PO SCH ×2 (09:46→18:30)
[2021-11-28] MEDS: Gabapentin 100 MG CAP PO SCH ×2 (09:46→20:25)
[2021-11-28] MEDS: Clopidogrel Bisulfate 75 MG TAB PO SCH (09:47)
[2021-11-28] MEDS: Valsartan 80 MG TAB PO SCH ×2 (09:47→20:25)
[2021-11-28] MEDS: HumaLOG 300 UNITS/3 ML VIAL SC SCH ×3 (09:51→17:52)
[2021-11-28] MEDS: Enoxaparin Sodium 40 MG/0.4 ML SYRINGE SC SCH (09:51)
[2021-11-28] MEDS: Aspirin Chewable 81 MG TAB PO SCH (09:51)
[2021-11-28] MEDS: Lidocaine 5% Patch TD SCH (09:51)
[2021-11-28] MEDS ORDERED: NIFEdipine XL 30 MG TAB PO SCH (10:00)
[2021-11-28] MEDS: Transdermal Patch Removal TOP SCH (20:24)
[2021-11-28] MEDS: Montelukast Sodium 10 mg Tablet PO SCH (20:26)
[2021-11-28] MEDS: Atorvastatin Calcium 40 MG TAB PO SCH (20:26)
[2021-11-28] MEDS: Insulin Glargine 30 UNITS/0.3 ML VIAL SC SCH (20:31)
[2021-11-29] MEDS ORDERED: NIFEdipine XL 30 MG TAB PO SCH (09:00)
[2021-11-29] MEDS: Valsartan 80 MG TAB PO SCH (09:10)
[2021-11-29] MEDS: Gabapentin 100 MG CAP PO SCH (09:10)
[2021-11-29] MEDS: Aspirin Chewable 81 MG TAB PO SCH (09:10)
[2021-11-29] MEDS: Lidocaine 5% Patch TD SCH (09:11)
[2021-11-29] MEDS: Clopidogrel Bisulfate 75 MG TAB PO SCH (09:11)
[2021-11-29] MEDS: Enoxaparin Sodium 40 MG/0.4 ML SYRINGE SC SCH (09:11)
[2021-11-29] MEDS: Carvedilol 6.25 MG TAB PO SCH ×2 (09:11→16:32)
[2021-11-29] MEDS: Acetaminophen 325 MG TAB PO PRN (12:11)
[2021-11-29 15:59] VITALS: BP 133/60; TEMP 98.6
== END 2021-11-29 17:17 | disposition home health service (06) | DRG 309 ==
LOC: ERS 18:56 → 2NO 20:57
PROVIDERS: ADMIT Internal Medicine; ATTEND Family Medicine
DX: R00.1 Bradycardia, unspecified (principal); N17.9 Acute kidney failure, unspecified; I13.0 Hypertensive heart and chronic kidney disease with heart failure and stage 1 through stage 4 chronic kidney disease, or unspecified chronic kidney disease; E87.1 Hypo-osmolality and hyponatremia; L97.429 Non-pressure chronic ulcer of left heel and midfoot with unspecified severity; I50.22 Chronic systolic (congestive) heart failure; I95.2 Hypotension due to drugs; Z20.822 Contact with and (suspected) exposure to COVID-19; I25.10 Atherosclerotic heart disease of native coronary artery without angina pectoris; E11.22 Type 2 diabetes mellitus with diabetic chronic kidney disease; R91.1 Solitary pulmonary nodule; I44.0 Atrioventricular block, first degree; E11.51 Type 2 diabetes mellitus with diabetic peripheral angiopathy without gangrene; T44.7X5A Adverse effect of beta-adrenoreceptor antagonists, initial encounter; G89.29 Other chronic pain; N40.0 Benign prostatic hyperplasia without lower urinary tract symptoms; E11.69 Type 2 diabetes mellitus with other specified complication; E11.621 Type 2 diabetes mellitus with foot ulcer; M54.9 Dorsalgia, unspecified; N18.30 Chronic kidney disease, stage 3 unspecified; E66.9 Obesity, unspecified; E83.42 Hypomagnesemia; Z95.1 Presence of aortocoronary bypass graft; Z88.1 Allergy status to other antibiotic agents; Z79.4 Long term (current) use of insulin; Z79.899 Other long term (current) drug therapy; Z85.46 Personal history of malignant neoplasm of prostate; Z89.511 Acquired absence of right leg below knee; Z98.1 Arthrodesis status; Z95.5 Presence of coronary angioplasty implant and graft; Z68.30 Body mass index [BMI] 30.0-30.9, adult
CPT/HCPCS: 36415; 36416; 70450; 71045; 80048; 80053; 80061; 80069; 80306; 80307; 81003; 83690; 83735; 83880; 84443; 84484; 85025; 93005; 93306; 94760; J0360; J1650; J1815; J2270; J3475; J7050; U0003; U0005

== ENCOUNTER 2021-12-04 12:04 | Inpatient (IN) | payer MEDICARE ==
[2021-12-04 13:14] LABS: #Eosinphils 0.2 thou/uL (0.0-0.7); #Lymphocytes 2.2 thou/uL (1.20-3.40); #Monocytes 0.6 thou/uL (0.11-0.59); #Neutrophils 6.4 thou/uL (1.40-6.50); %Basophils 0.4 % (0.0-1.0); %Eosinophils 1.8 % (0.0-10.0); %Lymphocytes 23.4 % (21.0-51.0); %Monocytes 6.7 % (0.0-10.0); %Neutrophils 67.6 % (42.0-75.0); Hemoglobin 11.1 g/dL (14.0-18.0); Mean Corpuscular HGB CONC 32.9 g/dL (32.0-36.0); Mean Corpuscular Hemoglobin 31.4 pg (27.0-31.0); Mean Corpuscular Volume 95.5 fL (78.0-98.0); Mean Platelet Volume 7.4 fL (7.4-10.4); Platelet Count 290 thou/uL (130-400); RBC Distribution Width 12.8 % (11.5-14.5); Red Blood Cell (RBC) Count 3.52 mill/uL (4.70-6.10); White Blood Cell (WBC) Count 9.5 thou/uL (4.8-10.8)
[2021-12-04 13:34] LABS: ALT (SGPT) 18 U/L (8-55); AST (SGOT) 16 U/L (5-34); Albumin 3.9 g/dL (3.4-4.8); Alkaline Phosphatase 78 U/L (40-110); Anion Gap 16 mmol/L (10-20); BUN (Urea Nitrogen) 32 mg/dL (8.4-25.7); Bilirubin, Total 0.6 mg/dL (0.2-1.2); Calc. Creatinine Clearance 0 mL/min (70-130); Calcium 7.9 mg/dL (7.8-10.44); Carbon Dioxide 24 mmol/L (23-31); Chloride 99 mmol/L (98-107); Globulin 3.5 g/dL (2.4-3.5); Glucose 163 mg/dL (83-110); Lipase 21 U/L (8-78); Magnesium 1.1 mg/dL (1.6-2.6); Potassium 4.5 mmol/L (3.5-5.1); Protein, Total 7.4 g/dL (5.8-8.1); Sodium 134 mmol/L (136-145)
[2021-12-04 14:30] LABS: Bilirubin Negative (Negative); Blood, Urine Negative (Negative); Clarity Clear (Clear); Glucose, Urine (Dipstick) Normal (Negative); Ketone, Urine Negative (Negative); Leukocyte Negative Leu/uL (Negative); Nitrite Negative (Negative); Protein, Urine (Dipstick) Negative (Neg-Trace); Specific Gravity, Urine 1.011 (1.002-1.036); Urobilinogen Normal mg/dL (Less than 2)
[2021-12-04] MEDS ORDERED: cefTRIAXone\\ROCEPHIN 1 GM VIAL ONE (15:27)
[2021-12-04] MEDS ORDERED: Ondansetron PF 4 MG/2 ML Vial IVP PRN (15:58)
[2021-12-04] MEDS ORDERED: Dextrose 5% in Water 1,000 ML IV PRN ×2 (16:12→16:15)
[2021-12-04] MEDS ORDERED: Dextrose 50% Abboject 50 ML SYRINGE SLOW IVP PRN (16:12)
[2021-12-04] MEDS ORDERED: Dextrose 50% Abboject 50 ML SYRINGE IVP PRN (16:15)
[2021-12-04] MEDS ORDERED: Vancomycin 1 GM/200 ML BAG ONE (16:34)
[2021-12-04 18:10] VITALS: BMI 29.1
[2021-12-04] MEDS: Acetaminophen 325 MG TAB PO PRN (18:24)
[2021-12-04] MEDS: Carvedilol 6.25 MG TAB PO SCH (18:24)
[2021-12-04] MEDS ORDERED: Non-Formulary Item 1 EACH (Valsartan [Valsartan] 160 MG Tablet) PO SCH (21:00)
[2021-12-04] MEDS: Tamsulosin HCl 0.4 MG CAP PO SCH (21:10)
[2021-12-04] MEDS: Gabapentin 100 MG CAP PO SCH (21:10)
[2021-12-04] MEDS: Atorvastatin Calcium 40 MG TAB PO SCH (21:12)
[2021-12-04] MEDS: Insulin Glargine 30 UNITS/0.3 ML VIAL SC SCH (21:12)
[2021-12-05 06:01] LABS: #Basophils 0.1 thou/uL (0.0-0.2); #Eosinphils 0.2 thou/uL (0.0-0.7); #Lymphocytes 2.1 thou/uL (1.20-3.40); #Monocytes 0.7 thou/uL (0.11-0.59); #Neutrophils 6.3 thou/uL (1.40-6.50); %Basophils 0.6 % (0.0-1.0); %Eosinophils 2.1 % (0.0-10.0); %Lymphocytes 22.7 % (21.0-51.0); %Monocytes 7.8 % (0.0-10.0); %Neutrophils 66.9 % (42.0-75.0); Hemoglobin 10.6 g/dL (14.0-18.0); Mean Corpuscular HGB CONC 33.5 g/dL (32.0-36.0); Mean Corpuscular Hemoglobin 31.7 pg (27.0-31.0); Mean Corpuscular Volume 94.8 fL (78.0-98.0); Mean Platelet Volume 7.4 fL (7.4-10.4); Platelet Count 281 thou/uL (130-400); RBC Distribution Width 12.7 % (11.5-14.5); Red Blood Cell (RBC) Count 3.34 mill/uL (4.70-6.10); White Blood Cell (WBC) Count 9.4 thou/uL (4.8-10.8)
[2021-12-05 06:21] LABS: Anion Gap 15 mmol/L (10-20); BUN (Urea Nitrogen) 28 mg/dL (8.4-25.7); Calc. Creatinine Clearance 60 mL/min (70-130); Calcium 7.6 mg/dL (7.8-10.44); Carbon Dioxide 26 mmol/L (23-31); Chloride 100 mmol/L (98-107); Glucose 98 mg/dL (83-110); Sodium 137 mmol/L (136-145)
[2021-12-05] MEDS: Aspirin 81 mg Enteric Coated Tablet PO SCH (08:29)
[2021-12-05] MEDS: Carvedilol 6.25 MG TAB PO SCH ×2 (08:29→17:01)
[2021-12-05] MEDS: Gabapentin 100 MG CAP PO SCH ×2 (08:30→19:59)
[2021-12-05] MEDS: Clopidogrel Bisulfate 75 MG TAB PO SCH (08:30)
[2021-12-05] MEDS: Enoxaparin Sodium 40 MG/0.4 ML SYRINGE SC SCH (08:30)
[2021-12-05 12:31] LABS: SARS-CoV-2 PCR by NAA Not Detected (NotDetected)
[2021-12-05] MEDS: Tamsulosin HCl 0.4 MG CAP PO SCH (19:59)
[2021-12-05] MEDS: Atorvastatin Calcium 40 MG TAB PO SCH (20:00)
[2021-12-05] MEDS: Insulin Glargine 30 UNITS/0.3 ML VIAL SC SCH (20:00)
[2021-12-05] MEDS: Acetaminophen 325 MG TAB PO PRN (20:34)
[2021-12-06] MEDS: Clopidogrel Bisulfate 75 MG TAB PO SCH (08:30)
[2021-12-06] MEDS: Aspirin 81 mg Enteric Coated Tablet PO SCH (08:30)
[2021-12-06] MEDS: Carvedilol 6.25 MG TAB PO SCH ×2 (08:30→17:57)
[2021-12-06] MEDS: Enoxaparin Sodium 40 MG/0.4 ML SYRINGE SC SCH (08:30)
[2021-12-06] MEDS ORDERED: Nitroglycerin 2% Ointment 1 INCH/1 GM Packet TOP SCH (08:30)
[2021-12-06] MEDS: Gabapentin 100 MG CAP PO SCH ×2 (08:30→20:23)
[2021-12-06 09:12] LABS: Troponin I 0.017 ng/mL (< 0.028)
[2021-12-06] MEDS: HumaLOG 300 UNITS/3 ML VIAL SC PRN (12:03)
[2021-12-06] MEDS: Tamsulosin HCl 0.4 MG CAP PO SCH (20:23)
[2021-12-06] MEDS: Montelukast Sodium 10 mg Tablet PO SCH (20:23)
[2021-12-06] MEDS: Insulin Glargine 30 UNITS/0.3 ML VIAL SC SCH (20:23)
[2021-12-06] MEDS: Atorvastatin Calcium 40 MG TAB PO SCH (20:23)
[2021-12-06] MEDS ORDERED: Bisacodyl 10 MG SUPP PR PRN (22:40)
[2021-12-07] MEDS: Acetaminophen 325 MG TAB PO PRN (04:45)
[2021-12-07] MEDS: Carvedilol 6.25 MG TAB PO SCH ×2 (08:19→17:10)
[2021-12-07] MEDS: Aspirin 81 mg Enteric Coated Tablet PO SCH (08:20)
[2021-12-07] MEDS: Enoxaparin Sodium 40 MG/0.4 ML SYRINGE SC SCH (08:20)
[2021-12-07] MEDS: Clopidogrel Bisulfate 75 MG TAB PO SCH (08:20)
[2021-12-07] MEDS: Gabapentin 100 MG CAP PO SCH ×2 (08:21→20:09)
[2021-12-07] MEDS ORDERED: Docusate 100 MG CAP PO PRN (10:18)
[2021-12-07] MEDS ORDERED: Polyethylene Glycol 3350 17 GM Packet PO PRN (10:18)
[2021-12-07] MEDS: HumaLOG 300 UNITS/3 ML VIAL SC PRN (17:10)
[2021-12-07] MEDS ORDERED: Simethicone Chewable 80 MG TAB PO PRN (19:52)
[2021-12-07] MEDS: Montelukast Sodium 10 mg Tablet PO SCH (20:09)
[2021-12-07] MEDS: Insulin Glargine 30 UNITS/0.3 ML VIAL SC SCH (20:09)
[2021-12-07] MEDS: Atorvastatin Calcium 40 MG TAB PO SCH (20:09)
[2021-12-07] MEDS: Tamsulosin HCl 0.4 MG CAP PO SCH (20:10)
[2021-12-08 07:20] LABS: Hemoglobin 11.3 g/dL (14.0-18.0); Mean Corpuscular HGB CONC 33.4 g/dL (32.0-36.0); Mean Corpuscular Hemoglobin 31.9 pg (27.0-31.0); Mean Corpuscular Volume 95.6 fL (78.0-98.0); Mean Platelet Volume 7.9 fL (7.4-10.4); Platelet Count 255 thou/uL (130-400); RBC Distribution Width 12.6 % (11.5-14.5); Red Blood Cell (RBC) Count 3.54 mill/uL (4.70-6.10); White Blood Cell (WBC) Count 9.1 thou/uL (4.8-10.8)
[2021-12-08 07:38] LABS: Anion Gap 16 mmol/L (10-20); BUN (Urea Nitrogen) 14 mg/dL (8.4-25.7); Calc. Creatinine Clearance 84 mL/min (70-130); Calcium 7.9 mg/dL (7.8-10.44); Carbon Dioxide 24 mmol/L (23-31); Chloride 104 mmol/L (98-107); Glucose 120 mg/dL (83-110); Sodium 140 mmol/L (136-145)
[2021-12-08] MEDS ORDERED: Valsartan 80 MG TAB PO SCH (09:00)
[2021-12-08] MEDS ORDERED: NIFEdipine XL 30 MG TAB PO SCH (09:00)
[2021-12-08] MEDS: Aspirin 81 mg Enteric Coated Tablet PO SCH (09:43)
[2021-12-08] MEDS: Carvedilol 6.25 MG TAB PO SCH ×2 (09:43→16:08)
[2021-12-08] MEDS: Clopidogrel Bisulfate 75 MG TAB PO SCH (09:43)
[2021-12-08] MEDS: Gabapentin 100 MG CAP PO SCH ×2 (09:44→21:10)
[2021-12-08] MEDS: Enoxaparin Sodium 40 MG/0.4 ML SYRINGE SC SCH (09:45)
[2021-12-08] MEDS ORDERED: Mag-Al 1200 mg/1200 mg/30 ML UDCUP PO PRN (11:32)
[2021-12-08] MEDS: hydrALAZINE 20 MG/ML VIAL SLOW IVP PRN (18:36)
[2021-12-08] MEDS: Atorvastatin Calcium 40 MG TAB PO SCH (21:10)
[2021-12-08] MEDS: Tamsulosin HCl 0.4 MG CAP PO SCH (21:10)
[2021-12-08] MEDS: Insulin Glargine 30 UNITS/0.3 ML VIAL SC SCH (21:12)
[2021-12-08] MEDS: Montelukast Sodium 10 mg Tablet PO SCH (21:12)
[2021-12-08] MEDS: Acetaminophen 325 MG TAB PO PRN (21:15)
[2021-12-09] MEDS: Valsartan 80 MG TAB PO SCH ×2 (08:43→20:21)
[2021-12-09] MEDS: Gabapentin 100 MG CAP PO SCH ×2 (08:43→20:22)
[2021-12-09] MEDS: Aspirin 81 mg Enteric Coated Tablet PO SCH (08:44)
[2021-12-09] MEDS: Carvedilol 6.25 MG TAB PO SCH ×2 (08:44→17:11)
[2021-12-09] MEDS: Enoxaparin Sodium 40 MG/0.4 ML SYRINGE SC SCH (08:44)
[2021-12-09] MEDS: Clopidogrel Bisulfate 75 MG TAB PO SCH (08:44)
[2021-12-09] MEDS: hydrALAZINE 20 MG/ML VIAL SLOW IVP PRN (18:15)
[2021-12-09] MEDS: Atorvastatin Calcium 40 MG TAB PO SCH (20:21)
[2021-12-09] MEDS: Insulin Glargine 30 UNITS/0.3 ML VIAL SC SCH (20:21)
[2021-12-09] MEDS: Tamsulosin HCl 0.4 MG CAP PO SCH (20:21)
[2021-12-09] MEDS: Montelukast Sodium 10 mg Tablet PO SCH (20:21)
[2021-12-10] MEDS: Aspirin 81 mg Enteric Coated Tablet PO SCH (08:12)
[2021-12-10] MEDS: Gabapentin 100 MG CAP PO SCH ×2 (08:12→20:39)
[2021-12-10] MEDS: Enoxaparin Sodium 40 MG/0.4 ML SYRINGE SC SCH (08:12)
[2021-12-10] MEDS: Clopidogrel Bisulfate 75 MG TAB PO SCH (08:12)
[2021-12-10] MEDS: Valsartan 80 MG TAB PO SCH ×2 (08:12→20:39)
[2021-12-10] MEDS: Carvedilol 6.25 MG TAB PO SCH ×2 (08:12→16:38)
[2021-12-10] MEDS ORDERED: Spironolactone 25 MG TAB PO SCH (13:00)
[2021-12-10] MEDS: hydrALAZINE 20 MG/ML VIAL SLOW IVP PRN (13:39)
[2021-12-10] MEDS: Tamsulosin HCl 0.4 MG CAP PO SCH (20:39)
[2021-12-10] MEDS: Atorvastatin Calcium 40 MG TAB PO SCH (20:40)
[2021-12-10] MEDS: Insulin Glargine 30 UNITS/0.3 ML VIAL SC SCH (20:43)
[2021-12-10] MEDS: Montelukast Sodium 10 mg Tablet PO SCH (20:46)
[2021-12-11 06:33] LABS: Anion Gap 10 mmol/L (10-20); BUN (Urea Nitrogen) 15 mg/dL (8.4-25.7); Calc. Creatinine Clearance 89 mL/min (70-130); Calcium 8.1 mg/dL (7.8-10.44); Carbon Dioxide 27 mmol/L (23-31); Chloride 105 mmol/L (98-107); Glucose 120 mg/dL (83-110); Potassium 3.7 mmol/L (3.5-5.1); Sodium 138 mmol/L (136-145)
[2021-12-11] MEDS ORDERED: Spironolactone 25 MG TAB PO SCH (08:00)
[2021-12-11 08:13] VITALS: TEMP 97.8
[2021-12-11] MEDS: Gabapentin 100 MG CAP PO SCH (08:22)
[2021-12-11] MEDS: Aspirin 81 mg Enteric Coated Tablet PO SCH (08:22)
[2021-12-11] MEDS: Carvedilol 6.25 MG TAB PO SCH (08:23)
[2021-12-11] MEDS: Enoxaparin Sodium 40 MG/0.4 ML SYRINGE SC SCH (08:23)
[2021-12-11] MEDS: Valsartan 80 MG TAB PO SCH (08:24)
[2021-12-11] MEDS: Clopidogrel Bisulfate 75 MG TAB PO SCH (08:26)
[2021-12-11] MEDS ORDERED: NIFEdipine XL 30 MG TAB PO SCH ×2 (12:07→21:00)
[2021-12-11 13:38] VITALS: BP 184/82
[2021-12-11] MEDS: hydrALAZINE 20 MG/ML VIAL SLOW IVP PRN (13:40)
== END 2021-12-11 15:11 | DRG 683 ==
LOC: ERS 12:04 → T4-B 15:59 → OBSVTOIN 12-05 13:36
PROVIDERS: ADMIT Hospitalist; ATTEND Hospitalist
DX: N17.9 Acute kidney failure, unspecified (principal); I50.22 Chronic systolic (congestive) heart failure; I95.2 Hypotension due to drugs; Z20.822 Contact with and (suspected) exposure to COVID-19; I25.10 Atherosclerotic heart disease of native coronary artery without angina pectoris; G43.909 Migraine, unspecified, not intractable, without status migrainosus; E78.5 Hyperlipidemia, unspecified; E11.51 Type 2 diabetes mellitus with diabetic peripheral angiopathy without gangrene; I11.0 Hypertensive heart disease with heart failure; E86.0 Dehydration; R00.1 Bradycardia, unspecified; T46.5X5A Adverse effect of other antihypertensive drugs, initial encounter; E78.00 Pure hypercholesterolemia, unspecified; K59.00 Constipation, unspecified; Z96.651 Presence of right artificial knee joint; Z89.519 Acquired absence of unspecified leg below knee; Z88.0 Allergy status to penicillin; Z79.4 Long term (current) use of insulin; Z79.82 Long term (current) use of aspirin; Z79.84 Long term (current) use of oral hypoglycemic drugs; Z79.899 Other long term (current) drug therapy; Z98.1 Arthrodesis status; Z89.611 Acquired absence of right leg above knee
CPT/HCPCS: 36415; 36416; 71045; 80048; 80053; 81003; 83605; 83690; 83735; 83880; 84484; 85025; 85027; 87040; 87086; 93005; 93010; 96365; 96367; 96372; G0378; J0360; J0696; J1650; J1815; J3370; U0003; U0005

== ENCOUNTER 2022-11-07 12:34 | Inpatient (IN) | payer OTHER ==
[2022-11-07] MEDS ORDERED: Acetaminophen 500 MG TAB ONE (14:50)
[2022-11-07 15:10] LABS: #Eosinphils 0.2 thou/uL (0.0-0.7); #Monocytes 0.7 thou/uL (0.11-0.59); #Neutrophils 7.5 thou/uL (1.40-6.50); %Basophils 0.3 % (0.0-1.0); %Lymphocytes 18.9 % (21.0-51.0); %Neutrophils 71.7 % (42.0-75.0); Hemoglobin 11.2 g/dL (14.0-18.0); Mean Corpuscular HGB CONC 34.4 g/dL (32.0-36.0); Mean Corpuscular Hemoglobin 32.8 pg (27.0-31.0); Mean Corpuscular Volume 95.2 fl (78.0-98.0); Mean Platelet Volume 8.1 fL (7.4-10.4); Platelet Count 212 10x3/uL (130-400); RBC Distribution Width 12.8 % (11.5-14.5); Red Blood Cell (RBC) Count 3.43 mill/uL (4.70-6.10); White Blood Cell (WBC) Count 10.4 10x3/uL (4.8-10.8)
[2022-11-07 15:46] LABS: ALT (SGPT) 11 U/L (8-55); AST (SGOT) 14 U/L (5-34); Albumin 3.9 g/dL (3.4-4.8); Alkaline Phosphatase 77 U/L (40-110); Anion Gap 15 mmol/L (10-20); BUN (Urea Nitrogen) 33 mg/dL (8.4-25.7); Bilirubin, Total 0.6 mg/dL (0.2-1.2); Calc. Creatinine Clearance 0 mL/min (70-130); Calcium 8.4 mg/dL (7.8-10.44); Carbon Dioxide 24 mmol/L (23-31); Chloride 105 mmol/L (98-107); Estimated GFR 47; Globulin 3.5 g/dL (2.4-3.5); Glucose 101 mg/dL (83-110); Potassium 5.6 mmol/L (3.5-5.1); Protein, Total 7.4 g/dL (5.8-8.1); Sodium 138 mmol/L (136-145)
[2022-11-07] MEDS ORDERED: Morphine 2 MG/ML VIAL ONE (17:47)
[2022-11-07] MEDS ORDERED: Meclizine HCl 25 MG TAB ONE (17:59)
[2022-11-07] MEDS ORDERED: Ondansetron PF 4 MG/2 ML Vial IVP PRN (18:13)
[2022-11-07] MEDS ORDERED: Calcium Carbonate 500 MG ChewTAB PO PRN (18:13)
[2022-11-07 19:28] VITALS: BMI 33.1
[2022-11-07] MEDS: Lactated Ringer's 1,000 ML IV SCH (20:35)
[2022-11-07] MEDS: Tamsulosin HCl 0.4 MG CAP PO SCH (20:36)
[2022-11-07] MEDS: NIFEdipine XL 30 MG TAB PO SCH (20:36)
[2022-11-07] MEDS: Montelukast Sodium 10 mg Tablet PO SCH (20:36)
[2022-11-07] MEDS: Gabapentin 100 MG CAP PO SCH (20:36)
[2022-11-07] MEDS: Atorvastatin Calcium 40 MG TAB PO SCH (20:36)
[2022-11-07] MEDS: Insulin Glargine 30 UNITS/0.3 ML VIAL SC SCH (20:40)
[2022-11-07] MEDS: Heparin 5,000 UNITS/ML VIAL SC SCH (20:44)
[2022-11-07] MEDS ORDERED: Dextrose 5% in Water 1,000 ML IV PRN (21:16)
[2022-11-07] MEDS ORDERED: HumaLOG 300 UNITS/3 ML VIAL SC PRN ×2 (21:16)
[2022-11-07] MEDS ORDERED: Dextrose 50% Abboject 50 ML SYRINGE SLOW IVP PRN (21:16)
[2022-11-08] MEDS ORDERED: hydrALAZINE 20 MG/ML VIAL SLOW IVP PRN (00:19)
[2022-11-08 05:57] LABS: #Eosinphils 0.3 thou/uL (0.0-0.7); #Lymphocytes 2.3 thou/uL (1.20-3.40); #Monocytes 0.7 thou/uL (0.11-0.59); #Neutrophils 4.4 thou/uL (1.40-6.50); %Basophils 0.5 % (0.0-1.0); %Eosinophils 3.6 % (0.0-10.0); %Lymphocytes 30.2 % (21.0-51.0); %Monocytes 8.7 % (0.0-10.0); Hemoglobin 10.1 g/dL (14.0-18.0); Mean Corpuscular HGB CONC 33.4 g/dL (32.0-36.0); Mean Corpuscular Hemoglobin 31.8 pg (27.0-31.0); Mean Corpuscular Volume 95.4 fl (78.0-98.0); Mean Platelet Volume 8.2 fL (7.4-10.4); Platelet Count 196 10x3/uL (130-400); RBC Distribution Width 12.8 % (11.5-14.5); Red Blood Cell (RBC) Count 3.19 mill/uL (4.70-6.10); White Blood Cell (WBC) Count 7.7 10x3/uL (4.8-10.8)
[2022-11-08 06:09] LABS: Hemoglobin A1c 7.3 % (4.0-6.0)
[2022-11-08 06:24] LABS: ALT (SGPT) 11 U/L (8-55); AST (SGOT) 12 U/L (5-34); Albumin 3.4 g/dL (3.4-4.8); Alkaline Phosphatase 62 U/L (40-110); Anion Gap 11 mmol/L (10-20); BUN (Urea Nitrogen) 33 mg/dL (8.4-25.7); Bilirubin, Total 0.4 mg/dL (0.2-1.2); Calc. Creatinine Clearance 51 mL/min (70-130); Calcium 7.9 mg/dL (7.8-10.44); Carbon Dioxide 25 mmol/L (23-31); Cardiac Risk 3.4 (Less than 4.5); Chloride 106 mmol/L (98-107); Cholesterol 105 mg/dl (< 200 Desired); Estimated GFR 48; Glucose 86 mg/dL (83-110); HDL Cholesterol 31 mg/dL (>60 Neg Risk); LDL Cholesterol, Calculated 51 mg/dL; Protein, Total 6.4 g/dL (5.8-8.1); Sodium 137 mmol/L (136-145); Triglycerides 114 mg/dL (Less than 150)
[2022-11-08] MEDS: Lactated Ringer's 1,000 ML IV SCH (07:00)
[2022-11-08] MEDS: NIFEdipine XL 30 MG TAB PO SCH ×2 (08:10→20:31)
[2022-11-08] MEDS: Carvedilol 6.25 MG TAB PO SCH ×2 (08:11→16:03)
[2022-11-08] MEDS: Gabapentin 100 MG CAP PO SCH ×2 (08:11→20:31)
[2022-11-08] MEDS: Clopidogrel Bisulfate 75 MG TAB PO SCH (08:12)
[2022-11-08] MEDS: Heparin 5,000 UNITS/ML VIAL SC SCH ×3 (08:12→20:32)
[2022-11-08] MEDS ORDERED: Aspirin 81 mg Enteric Coated Tablet PO SCH (09:00)
[2022-11-08] MEDS: traMADol HCl 50 MG TAB PO PRN ×2 (09:38→17:06)
[2022-11-08] MEDS: Montelukast Sodium 10 mg Tablet PO SCH (20:32)
[2022-11-08] MEDS: Atorvastatin Calcium 40 MG TAB PO SCH (20:32)
[2022-11-08] MEDS: Tamsulosin HCl 0.4 MG CAP PO SCH (20:32)
[2022-11-08] MEDS: Insulin Glargine 30 UNITS/0.3 ML VIAL SC SCH (20:37)
[2022-11-09] MEDS ORDERED: Aspirin 325 mg Enteric Coated Tablet PO SCH (09:00)
[2022-11-09] MEDS: NIFEdipine XL 30 MG TAB PO SCH (09:34)
[2022-11-09] MEDS: Carvedilol 6.25 MG TAB PO SCH ×2 (09:34→16:12)
[2022-11-09] MEDS: Gabapentin 100 MG CAP PO SCH ×3 (09:34→21:55)
[2022-11-09] MEDS: Heparin 5,000 UNITS/ML VIAL SC SCH ×3 (09:35→21:54)
[2022-11-09] MEDS: Clopidogrel Bisulfate 75 MG TAB PO SCH (09:35)
[2022-11-09] MEDS: Atorvastatin Calcium 40 MG TAB PO SCH (21:53)
[2022-11-09] MEDS: Montelukast Sodium 10 mg Tablet PO SCH (21:54)
[2022-11-09] MEDS: Insulin Glargine 30 UNITS/0.3 ML VIAL SC SCH (21:55)
[2022-11-09] MEDS: traMADol HCl 50 MG TAB PO PRN (21:56)
[2022-11-09] MEDS: Sacubitril 24MG/Valsartan 26 MG TAB PO SCH (21:57)
[2022-11-09] MEDS: Tamsulosin HCl 0.4 MG CAP PO SCH (21:57)
[2022-11-10] MEDS: traMADol HCl 50 MG TAB PO PRN ×2 (05:49→20:13)
[2022-11-10 06:24] LABS: #Eosinphils 0.3 thou/uL (0.0-0.7); #Lymphocytes 2.6 thou/uL (1.20-3.40); #Monocytes 0.7 thou/uL (0.11-0.59); #Neutrophils 4.7 thou/uL (1.40-6.50); %Basophils 0.4 % (0.0-1.0); %Eosinophils 3.8 % (0.0-10.0); %Lymphocytes 31.1 % (21.0-51.0); %Monocytes 8.2 % (0.0-10.0); %Neutrophils 56.6 % (42.0-75.0); Hemoglobin 10.6 g/dL (14.0-18.0); Mean Corpuscular HGB CONC 33.1 g/dL (32.0-36.0); Mean Corpuscular Hemoglobin 31.6 pg (27.0-31.0); Mean Corpuscular Volume 95.5 fl (78.0-98.0); Mean Platelet Volume 7.9 fL (7.4-10.4); Platelet Count 242 10x3/uL (130-400); RBC Distribution Width 12.6 % (11.5-14.5); Red Blood Cell (RBC) Count 3.34 mill/uL (4.70-6.10); White Blood Cell (WBC) Count 8.2 10x3/uL (4.8-10.8)
[2022-11-10 06:46] LABS: Anion Gap 12 mmol/L (10-20); BUN (Urea Nitrogen) 15 mg/dL (8.4-25.7); Calc. Creatinine Clearance 78 mL/min (70-130); Calcium 8.2 mg/dL (7.8-10.44); Carbon Dioxide 25 mmol/L (23-31); Chloride 102 mmol/L (98-107); Estimated GFR 80; Glucose 95 mg/dL (83-110); Potassium 4.5 mmol/L (3.5-5.1); Sodium 134 mmol/L (136-145)
[2022-11-10] MEDS: Gabapentin 100 MG CAP PO SCH ×2 (09:26→20:15)
[2022-11-10] MEDS: Aspirin 81 mg Enteric Coated Tablet PO SCH (09:26)
[2022-11-10] MEDS: Sacubitril 24MG/Valsartan 26 MG TAB PO SCH ×2 (09:26→20:15)
[2022-11-10] MEDS: Clopidogrel Bisulfate 75 MG TAB PO SCH (09:26)
[2022-11-10] MEDS: Carvedilol 6.25 MG TAB PO SCH ×2 (09:26→16:17)
[2022-11-10] MEDS: Heparin 5,000 UNITS/ML VIAL SC SCH ×3 (09:27→20:15)
[2022-11-10] MEDS: Senokot S 8.6-50 MG TAB PO PRN (20:14)
[2022-11-10] MEDS: Tamsulosin HCl 0.4 MG CAP PO SCH (20:15)
[2022-11-10] MEDS: Montelukast Sodium 10 mg Tablet PO SCH (20:15)
[2022-11-10] MEDS: Atorvastatin Calcium 40 MG TAB PO SCH (20:15)
[2022-11-10] MEDS: Insulin Glargine 30 UNITS/0.3 ML VIAL SC SCH (20:16)
[2022-11-11] MEDS: traMADol HCl 50 MG TAB PO PRN (04:51)
[2022-11-11] MEDS: Aspirin 81 mg Enteric Coated Tablet PO SCH (08:53)
[2022-11-11] MEDS: Heparin 5,000 UNITS/ML VIAL SC SCH ×3 (08:53→22:29)
[2022-11-11] MEDS: Clopidogrel Bisulfate 75 MG TAB PO SCH (08:53)
[2022-11-11] MEDS: Gabapentin 100 MG CAP PO SCH ×2 (08:53→22:29)
[2022-11-11] MEDS: Carvedilol 6.25 MG TAB PO SCH ×2 (08:53→16:14)
[2022-11-11] MEDS: Acetaminophen 325 MG TAB PO PRN ×2 (08:54→22:35)
[2022-11-11] MEDS: Sacubitril 24MG/Valsartan 26 MG TAB PO SCH ×2 (08:54→22:28)
[2022-11-11] MEDS ORDERED: Iopamidol 370 76% 100 ML VIAL ONE (09:46)
[2022-11-11] MEDS: Insulin Glargine 30 UNITS/0.3 ML VIAL SC SCH (22:28)
[2022-11-11] MEDS: Senokot S 8.6-50 MG TAB PO PRN (22:28)
[2022-11-11] MEDS: Atorvastatin Calcium 40 MG TAB PO SCH (22:29)
[2022-11-11] MEDS: Montelukast Sodium 10 mg Tablet PO SCH (22:29)
[2022-11-11] MEDS: Tamsulosin HCl 0.4 MG CAP PO SCH (22:29)
[2022-11-12] MEDS: Acetaminophen 325 MG TAB PO PRN (04:32)
[2022-11-12 06:55] LABS: #Basophils 0.1 thou/uL (0.0-0.2); #Eosinphils 0.3 thou/uL (0.0-0.7); #Lymphocytes 2.5 thou/uL (1.20-3.40); #Monocytes 0.6 thou/uL (0.11-0.59); %Basophils 0.6 % (0.0-1.0); %Eosinophils 3.4 % (0.0-10.0); %Lymphocytes 29.7 % (21.0-51.0); %Neutrophils 59.3 % (42.0-75.0); Hemoglobin 10.3 g/dL (14.0-18.0); Mean Corpuscular HGB CONC 33.5 g/dL (32.0-36.0); Mean Corpuscular Hemoglobin 31.7 pg (27.0-31.0); Mean Corpuscular Volume 94.5 fl (78.0-98.0); Mean Platelet Volume 7.9 fL (7.4-10.4); Platelet Count 263 10x3/uL (130-400); RBC Distribution Width 12.5 % (11.5-14.5); Red Blood Cell (RBC) Count 3.25 mill/uL (4.70-6.10); White Blood Cell (WBC) Count 8.5 10x3/uL (4.8-10.8)
[2022-11-12 07:13] LABS: Anion Gap 13 mmol/L (10-20); BUN (Urea Nitrogen) 21 mg/dL (8.4-25.7); Calc. Creatinine Clearance 67 mL/min (70-130); Calcium 8.2 mg/dL (7.8-10.44); Carbon Dioxide 25 mmol/L (23-31); Chloride 103 mmol/L (98-107); Estimated GFR 67; Glucose 100 mg/dL (83-110); Sodium 137 mmol/L (136-145)
[2022-11-12] MEDS: Sacubitril 24MG/Valsartan 26 MG TAB PO SCH ×2 (08:55→22:23)
[2022-11-12] MEDS: Carvedilol 6.25 MG TAB PO SCH ×2 (08:55→16:53)
[2022-11-12] MEDS: Gabapentin 100 MG CAP PO SCH ×2 (08:55→22:23)
[2022-11-12] MEDS: Clopidogrel Bisulfate 75 MG TAB PO SCH (08:55)
[2022-11-12] MEDS: Aspirin 81 mg Enteric Coated Tablet PO SCH (08:56)
[2022-11-12] MEDS: Heparin 5,000 UNITS/ML VIAL SC SCH ×3 (08:56→22:23)
[2022-11-12] MEDS: Insulin Glargine 30 UNITS/0.3 ML VIAL SC SCH (22:23)
[2022-11-12] MEDS: Atorvastatin Calcium 40 MG TAB PO SCH (22:23)
[2022-11-12] MEDS: Tamsulosin HCl 0.4 MG CAP PO SCH (22:24)
[2022-11-12] MEDS: Montelukast Sodium 10 mg Tablet PO SCH (22:24)
[2022-11-13 05:30] LABS: #Eosinphils 0.2 thou/uL (0.0-0.7); #Lymphocytes 1.8 thou/uL (1.20-3.40); #Monocytes 0.6 thou/uL (0.11-0.59); #Neutrophils 6.3 thou/uL (1.40-6.50); %Basophils 0.1 % (0.0-1.0); %Monocytes 6.3 % (0.0-10.0); %Neutrophils 71.6 % (42.0-75.0); Hemoglobin 11.2 g/dL (14.0-18.0); Mean Corpuscular HGB CONC 32.6 g/dL (32.0-36.0); Mean Corpuscular Hemoglobin 31.1 pg (27.0-31.0); Mean Corpuscular Volume 95.4 fl (78.0-98.0); Mean Platelet Volume 7.9 fL (7.4-10.4); Platelet Count 295 10x3/uL (130-400); RBC Distribution Width 12.6 % (11.5-14.5); Red Blood Cell (RBC) Count 3.61 mill/uL (4.70-6.10); White Blood Cell (WBC) Count 8.8 10x3/uL (4.8-10.8)
[2022-11-13 05:54] LABS: Anion Gap 15 mmol/L (10-20); BUN (Urea Nitrogen) 20 mg/dL (8.4-25.7); Calc. Creatinine Clearance 78 mL/min (70-130); Calcium 8.7 mg/dL (7.8-10.44); Carbon Dioxide 23 mmol/L (23-31); Chloride 102 mmol/L (98-107); Estimated GFR 80; Glucose 122 mg/dL (83-110); Sodium 136 mmol/L (136-145)
[2022-11-13] MEDS: Clopidogrel Bisulfate 75 MG TAB PO SCH (08:40)
[2022-11-13] MEDS: Heparin 5,000 UNITS/ML VIAL SC SCH ×3 (08:40→21:55)
[2022-11-13] MEDS: Sacubitril 24MG/Valsartan 26 MG TAB PO SCH ×2 (08:40→21:56)
[2022-11-13] MEDS: Gabapentin 100 MG CAP PO SCH ×2 (08:40→21:56)
[2022-11-13] MEDS: Carvedilol 6.25 MG TAB PO SCH ×2 (08:40→16:18)
[2022-11-13] MEDS: Aspirin 81 mg Enteric Coated Tablet PO SCH (08:40)
[2022-11-13] MEDS ORDERED: Melatonin 3 MG TAB PO PRN (16:27)
[2022-11-13] MEDS: traMADol HCl 50 MG TAB PO PRN (17:58)
[2022-11-13] MEDS: Montelukast Sodium 10 mg Tablet PO SCH (21:56)
[2022-11-13] MEDS: Atorvastatin Calcium 40 MG TAB PO SCH (21:56)
[2022-11-13] MEDS: Insulin Glargine 30 UNITS/0.3 ML VIAL SC SCH (21:56)
[2022-11-13] MEDS: Tamsulosin HCl 0.4 MG CAP PO SCH (21:56)
[2022-11-14 05:37] LABS: #Basophils 0.1 thou/uL (0.0-0.2); #Eosinphils 0.3 thou/uL (0.0-0.7); #Lymphocytes 2.1 thou/uL (1.20-3.40); #Monocytes 0.8 thou/uL (0.11-0.59); #Neutrophils 8.5 thou/uL (1.40-6.50); %Basophils 0.5 % (0.0-1.0); %Eosinophils 2.2 % (0.0-10.0); %Lymphocytes 17.9 % (21.0-51.0); %Monocytes 7.2 % (0.0-10.0); %Neutrophils 72.3 % (42.0-75.0); Hemoglobin 10.6 g/dL (14.0-18.0); Mean Corpuscular HGB CONC 33.9 g/dL (32.0-36.0); Mean Corpuscular Hemoglobin 31.9 pg (27.0-31.0); Mean Corpuscular Volume 94.2 fl (78.0-98.0); Mean Platelet Volume 7.8 fL (7.4-10.4); Platelet Count 273 10x3/uL (130-400); RBC Distribution Width 12.9 % (11.5-14.5); Red Blood Cell (RBC) Count 3.31 mill/uL (4.70-6.10); White Blood Cell (WBC) Count 11.8 10x3/uL (4.8-10.8)
[2022-11-14 05:53] LABS: Anion Gap 16 mmol/L (10-20); BUN (Urea Nitrogen) 27 mg/dL (8.4-25.7); Calc. Creatinine Clearance 73 mL/min (70-130); Calcium 8.7 mg/dL (7.8-10.44); Carbon Dioxide 22 mmol/L (23-31); Chloride 102 mmol/L (98-107); Estimated GFR 74; Glucose 105 mg/dL (83-110); Potassium 3.8 mmol/L (3.5-5.1); Sodium 136 mmol/L (136-145)
[2022-11-14] MEDS: Gabapentin 100 MG CAP PO SCH (08:10)
[2022-11-14] MEDS: Sacubitril 24MG/Valsartan 26 MG TAB PO SCH (08:12)
[2022-11-14] MEDS: Clopidogrel Bisulfate 75 MG TAB PO SCH (08:12)
[2022-11-14 08:13] VITALS: BP 134/64; TEMP 98.4
[2022-11-14] MEDS: Aspirin 81 mg Enteric Coated Tablet PO SCH (08:13)
[2022-11-14] MEDS: Carvedilol 6.25 MG TAB PO SCH (08:13)
[2022-11-14] MEDS: traMADol HCl 50 MG TAB PO PRN (08:14)
[2022-11-14] MEDS: Heparin 5,000 UNITS/ML VIAL SC SCH (08:16)
== END 2022-11-14 11:05 | disposition swing bed (61) | DRG 65 ==
LOC: ERS 12:34 → SUATTDRO 12:34 → NEURO 18:22 → OBSVTOIN 11-09 10:04
PROVIDERS: ADMIT Internal Medicine; ATTEND Internal Medicine
DX: I63.9 Cerebral infarction, unspecified (principal); R29.701 NIHSS score 1; I13.0 Hypertensive heart and chronic kidney disease with heart failure and stage 1 through stage 4 chronic kidney disease, or unspecified chronic kidney disease; I50.22 Chronic systolic (congestive) heart failure; N17.9 Acute kidney failure, unspecified; L97.429 Non-pressure chronic ulcer of left heel and midfoot with unspecified severity; I25.10 Atherosclerotic heart disease of native coronary artery without angina pectoris; I73.9 Peripheral vascular disease, unspecified; E11.22 Type 2 diabetes mellitus with diabetic chronic kidney disease; E78.5 Hyperlipidemia, unspecified; E87.5 Hyperkalemia; E11.51 Type 2 diabetes mellitus with diabetic peripheral angiopathy without gangrene; E11.621 Type 2 diabetes mellitus with foot ulcer; R47.1 Dysarthria and anarthria; N18.30 Chronic kidney disease, stage 3 unspecified; I25.5 Ischemic cardiomyopathy; Z89.611 Acquired absence of right leg above knee; Z88.1 Allergy status to other antibiotic agents; Z99.3 Dependence on wheelchair; Z79.899 Other long term (current) drug therapy; Z79.4 Long term (current) use of insulin; Z79.82 Long term (current) use of aspirin; Z79.02 Long term (current) use of antithrombotics/antiplatelets; Z79.84 Long term (current) use of oral hypoglycemic drugs
CPT/HCPCS: 36415; 36416; 70450; 70496; 70498; 70551; 80048; 80053; 80061; 83036; 85025; 93005; 93306; 93880; 96372; 96374; 97139; G0378; J1644; J1815; J2272; J7120; Q9967

== ENCOUNTER 2023-02-04 12:58 | Inpatient (IN) | payer OTHER ==
[~2023-02-04 12:58] MED LIST: Iopamidol-370 76% 500 ML MDV (1 ML CHARGE) ONE
[2023-02-04 13:42] LABS: #Basophils 0.1 thou/uL (0.0-0.2); #Eosinphils 0.3 thou/uL (0.0-0.7); #Monocytes 0.5 thou/uL (0.11-0.59); #Neutrophils 6.2 thou/uL (1.40-6.50); %Basophils 0.8 % (0.0-1.0); %Eosinophils 3.3 % (0.0-10.0); %Lymphocytes 18.3 % (21.0-51.0); %Monocytes 6.1 % (0.0-10.0); Hemoglobin 9.3 g/dL (14.0-18.0); Mean Corpuscular HGB CONC 31.5 g/dL (32.0-36.0); Mean Corpuscular Hemoglobin 30.9 pg (27.0-31.0); Mean Platelet Volume 9.7 fL (7.4-10.4); Platelet Count 306 10x3/uL (130-400); RBC Distribution Width 14.3 % (11.5-14.5); Red Blood Cell (RBC) Count 3.01 mill/uL (4.70-6.10); White Blood Cell (WBC) Count 8.7 10x3/uL (4.8-10.8)
[2023-02-04 13:50] LABS: Bilirubin Negative (Negative); Blood, Urine 2+ (Negative); CAUTI Indications for Culture Dysuria,urgency,freq; Clarity Turbid (Clear); Glucose, Urine (Dipstick) Normal (Negative); Ketone, Urine Negative (Negative); Leukocyte 500 Leu/uL (Negative); Nitrite Negative (Negative); Protein, Urine (Dipstick) 50 mg/dL (Neg-Trace); Specific Gravity, Urine 1.014 (1.002-1.036); Squamous Epithelial None Seen HPF (0-3); Urobilinogen Normal mg/dL (Less than 2); WBC/HPF Greater than 50 HPF (0-3)
[2023-02-04 13:51] LABS: Bacteria/HPF 2+ HPF (None Seen)
[2023-02-04 13:52] LABS: Urine Culture Reflex Yes Yes
[2023-02-04 14:08] LABS: ALT (SGPT) 8 U/L (8-55); AST (SGOT) 10 U/L (5-34); Albumin 3.6 g/dL (3.4-4.8); Alkaline Phosphatase 62 U/L (40-110); Anion Gap 15 mmol/L (10-20); BUN (Urea Nitrogen) 14 mg/dL (8.4-25.7); Bilirubin, Total 0.5 mg/dL (0.2-1.2); Calc. Creatinine Clearance 0 mL/min (70-130); Carbon Dioxide 24 mmol/L (23-31); Chloride 105 mmol/L (98-107); Estimated GFR 80; Globulin 3.3 g/dL (2.4-3.5); Glucose 175 mg/dL (83-110); Lipase 7 U/L (8-78); Potassium 4.5 mmol/L (3.5-5.1); Protein, Total 6.9 g/dL (5.8-8.1); Sodium 139 mmol/L (136-145)
[2023-02-04] MEDS ORDERED: cefTRIAXone (ROCEPHIN) 2 GM VIAL ONE (16:02)
[2023-02-04] MEDS ORDERED: Senokot S 8.6-50 MG TAB PO PRN (16:09)
[2023-02-04] MEDS ORDERED: Ondansetron ODT 4 MG TAB PO PRN (16:09)
[2023-02-04] MEDS ORDERED: Ondansetron PF 4 MG/2 ML Vial IVP PRN (16:09)
[2023-02-04] MEDS ORDERED: HumaLOG 300 UNITS/3 ML VIAL SC PRN (17:26)
[2023-02-04] MEDS ORDERED: Glucagon 1 MG/ML KIT IM PRN (17:26)
[2023-02-04] MEDS ORDERED: Dextrose 50% Abboject 50 ML SYRINGE SLOW IVP PRN (17:26)
[2023-02-04] MEDS ORDERED: Dextrose 5% in Water 1,000 ML IV PRN (17:26)
[2023-02-04 19:52] VITALS: BMI 28.2
[2023-02-04] MEDS ORDERED: Famotidine 20 MG TAB PO SCH (21:00)
[2023-02-04] MEDS: Carvedilol 25 MG TAB PO SCH (21:27)
[2023-02-04] MEDS: Folic Acid 1 MG TAB PO SCH (21:27)
[2023-02-04] MEDS: Sacubitril 49 MG/Valsartan 51 MG TABLET PO SCH (22:19)
[2023-02-05 07:12] LABS: #Basophils 0.1 thou/uL (0.0-0.2); #Eosinphils 0.2 thou/uL (0.0-0.7); #Monocytes 0.6 thou/uL (0.11-0.59); #Neutrophils 8.9 thou/uL (1.40-6.50); %Basophils 0.7 % (0.0-1.0); %Eosinophils 1.9 % (0.0-10.0); %Lymphocytes 12.7 % (21.0-51.0); %Monocytes 5.3 % (0.0-10.0); %Neutrophils 78.9 % (42.0-75.0); Hemoglobin 9.3 g/dL (14.0-18.0); Mean Corpuscular HGB CONC 32.3 g/dL (32.0-36.0); Mean Corpuscular Hemoglobin 30.9 pg (27.0-31.0); Mean Corpuscular Volume 95.7 fl (78.0-98.0); Mean Platelet Volume 10.2 fL (7.4-10.4); Platelet Count 365 10x3/uL (130-400); Red Blood Cell (RBC) Count 3.01 mill/uL (4.70-6.10); White Blood Cell (WBC) Count 11.3 10x3/uL (4.8-10.8)
[2023-02-05 07:40] LABS: Anion Gap 16 mmol/L (10-20); BUN (Urea Nitrogen) 10 mg/dL (8.4-25.7); Calc. Creatinine Clearance 87 mL/min (70-130); Calcium 8.5 mg/dL (7.8-10.44); Carbon Dioxide 23 mmol/L (23-31); Chloride 103 mmol/L (98-107); Estimated GFR 92; Glucose 125 mg/dL (83-110); Potassium 4.5 mmol/L (3.5-5.1); Sodium 137 mmol/L (136-145)
[2023-02-05] MEDS: Aspirin 81 mg Enteric Coated Tablet PO SCH (09:33)
[2023-02-05] MEDS: Amlodipine 10 MG TAB PO SCH (09:33)
[2023-02-05] MEDS: Ferrous Sulfate 325 MG TAB PO SCH (09:33)
[2023-02-05] MEDS: Carvedilol 25 MG TAB PO SCH ×2 (09:33→20:40)
[2023-02-05] MEDS: Spironolactone 25 MG TAB PO SCH (09:35)
[2023-02-05] MEDS: Tamsulosin HCl 0.4 MG CAP PO SCH (09:35)
[2023-02-05] MEDS: Sacubitril 49 MG/Valsartan 51 MG TABLET PO SCH ×2 (10:45→20:41)
[2023-02-05] MEDS ORDERED: cefTRIAXone\\ROCEPHIN 1 GM in Sodium Chloride 0.9% 100 ML IVPB SCH (16:00)
[2023-02-05] MEDS ORDERED: Melatonin 3 MG TAB PO PRN (19:59)
[2023-02-05] MEDS ORDERED: Meropenem 1 GM in Sodium Chloride 0.9% 100 ML IVPB SCH ×2 (20:00→22:00)
[2023-02-05] MEDS ORDERED: traZODone HCl 50 MG TAB PO SCH (20:00)
[2023-02-05] MEDS: Folic Acid 1 MG TAB PO SCH (20:40)
[2023-02-06] MEDS: Meropenem 1 GM in Sodium Chloride 0.9% 100 ML IVPB SCH ×5 (00:57→20:23)
[2023-02-06] MEDS: Tamsulosin HCl 0.4 MG CAP PO SCH (10:58)
[2023-02-06] MEDS: Clopidogrel Bisulfate 75 MG TAB PO SCH (10:59)
[2023-02-06] MEDS: Aspirin 81 mg Enteric Coated Tablet PO SCH (10:59)
[2023-02-06] MEDS: Carvedilol 25 MG TAB PO SCH ×2 (10:59→20:25)
[2023-02-06] MEDS: Ferrous Sulfate 325 MG TAB PO SCH (10:59)
[2023-02-06] MEDS: Amlodipine 10 MG TAB PO SCH (10:59)
[2023-02-06] MEDS: Spironolactone 25 MG TAB PO SCH (10:59)
[2023-02-06] MEDS: Sacubitril 49 MG/Valsartan 51 MG TABLET PO SCH ×2 (11:01→20:25)
[2023-02-06] MEDS: Heparin 5,000 UNITS/ML VIAL SC SCH ×2 (11:14→20:25)
[2023-02-06] MEDS ORDERED: HumaLOG 300 UNITS/3 ML VIAL SC PRN ×2 (17:39)
[2023-02-06] MEDS: Acetaminophen 325 MG TAB PO PRN (18:41)
[2023-02-06] MEDS: Gabapentin 100 MG CAP PO SCH (20:24)
[2023-02-06] MEDS: Cyanocobalamin (Vitamin B-12) 1,000 MCG TAB PO SCH (20:25)
[2023-02-06] MEDS: Folic Acid 1 MG TAB PO SCH (20:25)
[2023-02-06] MEDS: Montelukast Sodium 10 mg Tablet PO SCH (20:25)
[2023-02-07] MEDS: Meropenem 1 GM in Sodium Chloride 0.9% 100 ML IVPB SCH ×2 (04:16→12:35)
[2023-02-07 07:19] LABS: #Basophils 0.1 thou/uL (0.0-0.2); #Eosinphils 0.3 thou/uL (0.0-0.7); #Monocytes 1.1 thou/uL (0.11-0.59); #Neutrophils 4.8 thou/uL (1.40-6.50); %Basophils 0.7 % (0.0-1.0); %Eosinophils 3.8 % (0.0-10.0); %Lymphocytes 16.1 % (21.0-51.0); %Monocytes 14.2 % (0.0-10.0); %Neutrophils 64.8 % (42.0-75.0); Mean Corpuscular HGB CONC 32.6 g/dL (32.0-36.0); Mean Corpuscular Hemoglobin 30.5 pg (27.0-31.0); Mean Corpuscular Volume 93.6 fl (78.0-98.0); Mean Platelet Volume 9.8 fL (7.4-10.4); Platelet Count 320 10x3/uL (130-400); RBC Distribution Width 14.1 % (11.5-14.5); Red Blood Cell (RBC) Count 3.28 mill/uL (4.70-6.10); White Blood Cell (WBC) Count 7.4 10x3/uL (4.8-10.8)
[2023-02-07 07:40] LABS: Anion Gap 12 mmol/L (10-20); BUN (Urea Nitrogen) 7 mg/dL (8.4-25.7); Calc. Creatinine Clearance 81 mL/min (70-130); Calcium 8.5 mg/dL (7.8-10.44); Carbon Dioxide 24 mmol/L (23-31); Chloride 105 mmol/L (98-107); Estimated GFR 90; Glucose 136 mg/dL (83-110); Potassium 4.3 mmol/L (3.5-5.1); Sodium 137 mmol/L (136-145)
[2023-02-07] MEDS: Aspirin 81 mg Enteric Coated Tablet PO SCH (08:36)
[2023-02-07] MEDS: Acetaminophen 325 MG TAB PO PRN (08:37)
[2023-02-07] MEDS: Gabapentin 100 MG CAP PO SCH ×2 (08:37→20:55)
[2023-02-07] MEDS: Amlodipine 10 MG TAB PO SCH (08:37)
[2023-02-07] MEDS: Ferrous Sulfate 325 MG TAB PO SCH (08:38)
[2023-02-07] MEDS: Spironolactone 25 MG TAB PO SCH (08:38)
[2023-02-07] MEDS: Tamsulosin HCl 0.4 MG CAP PO SCH (08:38)
[2023-02-07] MEDS: Carvedilol 25 MG TAB PO SCH ×2 (08:38→20:55)
[2023-02-07] MEDS: Sacubitril 49 MG/Valsartan 51 MG TABLET PO SCH ×2 (08:38→20:56)
[2023-02-07] MEDS: Clopidogrel Bisulfate 75 MG TAB PO SCH (08:38)
[2023-02-07] MEDS: Heparin 5,000 UNITS/ML VIAL SC SCH ×2 (08:39→20:56)
[2023-02-07] MEDS: HYDROcodone/Acetaminophen 5/325 mg Tablet PO PRN (20:54)
[2023-02-07] MEDS: Cefepime 1 GM in Sodium Chloride 0.9% 100 ML IVPB SCH (20:55)
[2023-02-07] MEDS: Folic Acid 1 MG TAB PO SCH (20:55)
[2023-02-07] MEDS: Cyanocobalamin (Vitamin B-12) 1,000 MCG TAB PO SCH (20:55)
[2023-02-07] MEDS: Montelukast Sodium 10 mg Tablet PO SCH (20:56)
[2023-02-08] MEDS: Cefepime 1 GM in Sodium Chloride 0.9% 100 ML IVPB SCH ×2 (08:09→20:30)
[2023-02-08] MEDS: Carvedilol 25 MG TAB PO SCH ×2 (08:12→21:17)
[2023-02-08] MEDS: Amlodipine 10 MG TAB PO SCH (08:12)
[2023-02-08] MEDS: Tamsulosin HCl 0.4 MG CAP PO SCH (08:13)
[2023-02-08] MEDS: Gabapentin 100 MG CAP PO SCH ×2 (08:13→20:31)
[2023-02-08] MEDS: Ferrous Sulfate 325 MG TAB PO SCH (08:13)
[2023-02-08] MEDS: Clopidogrel Bisulfate 75 MG TAB PO SCH (08:13)
[2023-02-08] MEDS: Heparin 5,000 UNITS/ML VIAL SC SCH ×2 (08:14→20:32)
[2023-02-08] MEDS: Aspirin 81 mg Enteric Coated Tablet PO SCH (08:14)
[2023-02-08] MEDS: Spironolactone 25 MG TAB PO SCH (08:14)
[2023-02-08] MEDS: Sacubitril 49 MG/Valsartan 51 MG TABLET PO SCH ×2 (08:19→20:32)
[2023-02-08] MEDS: HYDROcodone/Acetaminophen 5/325 mg Tablet PO PRN ×2 (08:19→15:43)
[2023-02-08] MEDS: Folic Acid 1 MG TAB PO SCH (20:30)
[2023-02-08] MEDS: Montelukast Sodium 10 mg Tablet PO SCH (20:30)
[2023-02-08] MEDS: Cyanocobalamin (Vitamin B-12) 1,000 MCG TAB PO SCH (20:31)
[2023-02-09] MEDS: Acetaminophen 325 MG TAB PO PRN ×2 (00:51→22:24)
[2023-02-09 07:38] LABS: #Basophils 0.1 thou/uL (0.0-0.2); #Eosinphils 0.4 thou/uL (0.0-0.7); #Monocytes 0.8 thou/uL (0.11-0.59); %Basophils 0.9 % (0.0-1.0); %Eosinophils 4.5 % (0.0-10.0); %Lymphocytes 28.1 % (21.0-51.0); %Monocytes 9.1 % (0.0-10.0); %Neutrophils 57.1 % (42.0-75.0); Hemoglobin 9.2 g/dL (14.0-18.0); Mean Corpuscular HGB CONC 31.6 g/dL (32.0-36.0); Mean Corpuscular Hemoglobin 30.7 pg (27.0-31.0); Mean Platelet Volume 9.6 fL (7.4-10.4); Platelet Count 322 10x3/uL (130-400); White Blood Cell (WBC) Count 8.7 10x3/uL (4.8-10.8)
[2023-02-09 08:01] LABS: Anion Gap 13 mmol/L (10-20); BUN (Urea Nitrogen) 20 mg/dL (8.4-25.7); Calc. Creatinine Clearance 74 mL/min (70-130); Calcium 8.3 mg/dL (7.8-10.44); Carbon Dioxide 23 mmol/L (23-31); Chloride 105 mmol/L (98-107); Estimated GFR 87; Glucose 124 mg/dL (83-110); Potassium 4.2 mmol/L (3.5-5.1); Sodium 137 mmol/L (136-145)
[2023-02-09] MEDS: Heparin 5,000 UNITS/ML VIAL SC SCH ×2 (08:38→22:18)
[2023-02-09] MEDS: Gabapentin 100 MG CAP PO SCH ×2 (08:39→22:17)
[2023-02-09] MEDS: Spironolactone 25 MG TAB PO SCH (08:39)
[2023-02-09] MEDS: Tamsulosin HCl 0.4 MG CAP PO SCH (08:39)
[2023-02-09] MEDS: Ferrous Sulfate 325 MG TAB PO SCH (08:39)
[2023-02-09] MEDS: Aspirin 81 mg Enteric Coated Tablet PO SCH (08:39)
[2023-02-09] MEDS: Sacubitril 49 MG/Valsartan 51 MG TABLET PO SCH ×2 (08:40→22:23)
[2023-02-09] MEDS: Carvedilol 25 MG TAB PO SCH ×2 (08:40→22:18)
[2023-02-09] MEDS: Amlodipine 10 MG TAB PO SCH (08:40)
[2023-02-09] MEDS: Clopidogrel Bisulfate 75 MG TAB PO SCH (08:40)
[2023-02-09] MEDS: HYDROcodone/Acetaminophen 5/325 mg Tablet PO PRN (08:41)
[2023-02-09] MEDS: Cefepime 1 GM in Sodium Chloride 0.9% 100 ML IVPB SCH ×2 (08:42→22:18)
[2023-02-09] MEDS: Montelukast Sodium 10 mg Tablet PO SCH (22:17)
[2023-02-09] MEDS: Cyanocobalamin (Vitamin B-12) 1,000 MCG TAB PO SCH (22:18)
[2023-02-09] MEDS: Folic Acid 1 MG TAB PO SCH (22:18)
[2023-02-10] MEDS: Carvedilol 25 MG TAB PO SCH (09:03)
[2023-02-10] MEDS: Gabapentin 100 MG CAP PO SCH (09:03)
[2023-02-10] MEDS: Tamsulosin HCl 0.4 MG CAP PO SCH (09:03)
[2023-02-10] MEDS: Amlodipine 10 MG TAB PO SCH (09:03)
[2023-02-10] MEDS: Clopidogrel Bisulfate 75 MG TAB PO SCH (09:03)
[2023-02-10] MEDS: Spironolactone 25 MG TAB PO SCH (09:03)
[2023-02-10] MEDS: Cefepime 1 GM in Sodium Chloride 0.9% 100 ML IVPB SCH (09:04)
[2023-02-10] MEDS: Aspirin 81 mg Enteric Coated Tablet PO SCH (09:04)
[2023-02-10] MEDS: Sacubitril 49 MG/Valsartan 51 MG TABLET PO SCH (09:04)
[2023-02-10] MEDS: Ferrous Sulfate 325 MG TAB PO SCH (09:04)
[2023-02-10] MEDS: Heparin 5,000 UNITS/ML VIAL SC SCH (09:04)
[2023-02-10] MEDS: Acetaminophen 325 MG TAB PO PRN (11:45)
[2023-02-10 17:06] VITALS: BP 115/60; TEMP 97.4
== END 2023-02-10 18:07 | disposition hospice, home (50) | DRG 698 ==
LOC: ERS 12:58 → T4-B 16:10
PROVIDERS: ADMIT Hospitalist; ATTEND Emergency Medicine
DX: T83.511A Infection and inflammatory reaction due to indwelling urethral catheter, initial encounter (principal); G93.41 Metabolic encephalopathy; I50.22 Chronic systolic (congestive) heart failure; Z16.24 Resistance to multiple antibiotics; N39.0 Urinary tract infection, site not specified; E11.51 Type 2 diabetes mellitus with diabetic peripheral angiopathy without gangrene; I25.10 Atherosclerotic heart disease of native coronary artery without angina pectoris; R33.9 Retention of urine, unspecified; Z66 Do not resuscitate; I25.5 Ischemic cardiomyopathy; D63.8 Anemia in other chronic diseases classified elsewhere; I11.0 Hypertensive heart disease with heart failure; D72.829 Elevated white blood cell count, unspecified; F01.50 Vascular dementia, unspecified severity, without behavioral disturbance, psychotic disturbance, mood disturbance, and anxiety; B96.4 Proteus (mirabilis) (morganii) as the cause of diseases classified elsewhere; G47.33 Obstructive sleep apnea (adult) (pediatric); N40.0 Benign prostatic hyperplasia without lower urinary tract symptoms; Z88.1 Allergy status to other antibiotic agents; Z79.84 Long term (current) use of oral hypoglycemic drugs; Z86.73 Personal history of transient ischemic attack (TIA), and cerebral infarction without residual deficits; Z79.82 Long term (current) use of aspirin; Z79.4 Long term (current) use of insulin; Z79.899 Other long term (current) drug therapy; Z95.5 Presence of coronary angioplasty implant and graft; Z85.46 Personal history of malignant neoplasm of prostate; Z92.3 Personal history of irradiation; Z87.891 Personal history of nicotine dependence; Z89.611 Acquired absence of right leg above knee
CPT/HCPCS: 36415; 36416; 71045; 74177; 76705; 80048; 80053; 81001; 83605; 83690; 83880; 84484; 85025; 87040; 87077; 87086; 87186; 93005; 96365; 97139; J0692; J0696; J1644; J1650; J2185; J3490; Q9967